=== PATIENT | female | born 1980 | race Caucasian/White ===

== ENCOUNTER 2023-05-15 03:02 | Inpatient (IN) | payer SELFPAY ==
[2023-05-15] VITALS (161 sets, daily range): BP systolic 104–172; BP diastolic 57–124; PULSE 82–141; RESP 0–37; TEMP 35.8–36.8; O2SAT 86–100
--- NOTE | 2023-05-15 03:00 | RT.EKG_ITS ---
APPROVED REPORT Exam: Resting ECG Reason for Exam: short of breath Patient Location: E HR:122 bpm ECG Measurements Heart Rate 122 AXIS NM 127 P 53 QRSd 105 QRS 57 QT 355 T -44 QTc 506 Conclusion Sinus tachycardia...rate> 99 Probable left atrial enlargement...P >50mS, <-0.10mV V1 Physician: no stemi
--- NOTE | 2023-05-15 03:49 | W.ED.GENAD ---
Discharge Plan Disposition Patient Disposition: Admit to [facility] Condition: Good Discharge Details Chief Complaint: SOB Clinical Impression: Diabetic ketoacidosis Primary Care Provider: Mary Kate Trejo ED Provider: Dale Nunez Home Meds and New Rx's Prescriptions: No Action losartan 25 MG tablet 25 mg PO DAILY gabapentin 100 MG capsule 300 mg PO DAILY insulin aspart U-100 [Novolog FlexPen U-100 Insulin] 300 UNITS/3 ML insulin pen 1 applic Sub-Q 0800,1200,1700 Qty: 7 Rx Instructions: FSBS 140-180 6 units, 181-220 8 units, 221- 260 10 units, 261 -300 12 units, 301-340 14 units, 341-380 16 units insulin glargine [Lantus Solostar U-100 Insulin] 300 UNITS/3 ML insulin pen 60 units Sub-Q HS Qty: 7 atorvastatin 40 MG tablet 40 mg PO DAILY levonorgestrel [Mirena] 1 EACH intrauterine device 1 ea .Route DIRECTED Patient Comments: is in place Medical Decision Making 42-year-old female with a past medical history of type II diabetes mellitus on insulin, high cholesterol, hypertension, presents today for evaluation of vomiting. Patient states that for the last 2 to 3 days she has had nausea and vomiting. She has been unable to keep anything down. She has been very thirsty. She is only been urinating a small amount every night. She admits to mild abdominal achiness but no focal tenderness. No focal pain. She denies any chest pain or shortness of breath. She states that symptoms feel similar to previous DKA episodes. Exam demonstrates notably dry mucous membranes, tachypneic, notably low end-tidal CO2, concern for DKA. We will rehydrate, evaluate for electrolyte abnormalities, monitor closely and reassess. 4:52 AM Laboratory work-up demonstrates white count of 20, no fever. pH of 6.9, which is obviously concerning. Bicarb of 4, PCO2 of 21, potassium of 3.3, creatinine of 1.1. Glucose of 481. Patient had already received 1 L of lactated Ringer's. 1 L of normal saline was then added, and patient just finished this now. We will start third liter of fluids which will be normal saline. Insulin drip has been started at 0.1 unit/kg/h. For the DKA. Additional supplemental IV potassium will be given. 20 mill equivalents will be administered now slowly over the IV. We will continue to rehydrate. I did contact Dr. Alaniz, and discussed the case with him. He agrees with the assessment and plan. I have extensively reviewed the treatment plan with the patient. I have addressed all patient concerns at this time. I have also discussed the plan with the admitting physician and they agree with the current assessment and plan and have agreed to assume responsibility for the patient. All parties demonstrate verbal understanding and agreement with our assessment and plan at this time. The documentation in this chart was dictated using [employer] dictation software. Please excuse any dictation errors. Patient has still not urinated at this time. Additionally lipase is normal. Bilirubin was normal. Repeat exam continues to show no evidence of an acute surgical abdomen or focal abdominal tenderness. Patient does look notably improved, respirations of somewhat diminished. Patient states that she is feeling better. HPI General Date/Time Provider Initiated Documentation: 05/15/23 03:06. HPI Narrative: 42-year-old female with a past medical history of type II diabetes mellitus on insulin, high cholesterol, hypertension, presents today for evaluation of vomiting. Patient states that for the last 2 to 3 days she has had nausea and vomiting. She has been unable to keep anything down. She has been very thirsty. She is only been urinating a small amount every night. She admits to mild abdominal achiness but no focal tenderness. No focal pain. She denies any chest pain or shortness of breath. She states that symptoms feel similar to previous DKA episodes. Related Data Home Medications Medication Instructions Recorded Confirmed levonorgestrel 21 mcg/24 hours (8 1 ea .Route DIRECTED 06/13/14 03/11/15 yrs) 52 mg intrauterine device (Mirena) gabapentin 100 mg capsule 300 mg PO DAILY 10/26/15 losartan 25 mg tablet 25 mg PO DAILY 10/26/15 insulin aspart U-100 100 unit/mL 1 applic subcut 0800,1200,1700 ##7 05/14/16 (3 mL) subcutaneous pen (Novolog FlexPen U-100 Insulin aspart) insulin glargine 100 unit/mL (3 60 units subcut HS ##7 05/14/16 mL) subcutaneous pen (Lantus Solostar U-100 Insulin) atorvastatin 40 mg tablet 40 mg PO DAILY 07/27/16 Allergies Allergy/AdvReac Type Severity Reaction Status Date / Time Penicillins Allergy Hives Verified 08/10/16 00:55 codeine AdvReac Nausea Verified 08/10/16 00:55 General Stated Complaint: SOB CAPRICE: 2 Review of Systems All systems reviewed & are unremarkable except as noted in HPI and below PFSH All Active Problems (Updated 05/15/23 @ 05:03 by Dale Nunez DO) Diabetic ketoacidosis (Acute 06/13/14) Insulin drip followed by basal boulus insulin dosing. E. coli UTI (Acute 06/13/14) Received 4 days of IV Deftriaxone. Not discharged on the with any antibiotics. FU urine nonspecific mixed gram positive growth. Hypokalemia (Acute 06/13/14) Type 2 diabetes mellitus (Chronic) Initially on insulin therapy and then oral Metformin, now back on insulin thereapy. Hyperlipidemia (Chronic) Started on Pravastatin this admission (06-13-2014) Morbid obesity with body mass index of 40.0-49.9 (Chronic) Family History Mother Diabetes Uterine cancer Father Diabetes Heart disease Sister Thyroid disorder Grandmother Colon cancer maternal Social History Smoking/Tobacco Use Status: Never Smoking risk assessment performed?: Yes Alcohol Intake: never Drug use: Never Do you feel safe at home: Yes Do you feel safe in your relationship?: Yes Exam Narrative Exam Narrative: 1.Const: Well-nourished, Well-developed, appearing stated age 2.Eyes: PERRL, no conjunctival injection, and symmetrical lids. 3.ENT: Atraumatic external nose and ears. Notably dry MM. Neck: Symmetric, trachea midline, No thyromegaly. 4.CVS: +S1/S2, No murmurs or gallops. Peripheral pulses 2+ and equal in all extremities. Brisk capillary refill in all extremities. 5.RESP: Unlabored respiratory effort. Clear to auscultation bilaterally. No wheezes rales or rhonchi 6.GI: Soft, Nontender/Nondistended, No hepatosplenomegaly. No guarding or rebound. Mild achiness throughout. 7.MSK: Normocephalic/Atraumatic, Extremities w/o deformity or ttp No cyanosis or clubbing, Normal movement of all extremities 8.Skin: Warm, Dry. No rashes or lesions. 9.Neuro: molder setter II-XII grossly intact. Sensation grossly intact, no focal neurologic deficits. 10.Psych: (AAO) x3. Appropriate mood and affect Course Vital Signs Vital signs: Vital Signs Respiratory Rate 30 H 05/15/23 03:31 Respiratory Rate 30 H 05/15/23 03:31 Respiratory Effort Short of Breath 05/15/23 03:31 Respiratory Depth Normal 05/15/23 03:31 Respiratory Pattern Normal 05/15/23 03:31 Critical Care Time Critical Care Time Critical Care Time: Yes Total Critical Care Time: 45 Attestation: Upon my evaluation, this patient had a high probability of imminent or life-threatening deterioration, which required my direct attention, intervention, and personal management. I have personally provided 45 minutes of critical care time exclusive of time spent on separately billable procedures. Time includes review of laboratory data, radiology results, discussion with consultants, and monitoring for potential decompensation. Interventions were performed as documented.
[2023-05-15 03:56] LABS: BE (Venous) -29 mmol/L (-2-3); HCO3 (Venous) 4 mmol/L (23-28); O2 Sat (Venous) 87 %; TCO2 (Venous) 4 mmol/L (24-29); pCO2 (Venous) 21 mmHg (41-51); pO2 (Venous) 64 mmHg
[2023-05-15 04:00] LABS: Absolute Basophil Count 0.15 10^3/uL (0.0-0.2); Absolute Monocyte Count 0.64 10^3/uL (0.1-0.8); Basophils % 0.8; Eosinophils % 0.1; HCT 54.4 % (36.0-46.0); HGB 17.9 g/dL (11.2-15.7); Immature Grans % 2.6; MCH 28.5 pg (27.0-33.0); MCHC 32.9 % (32.0-36.0); MCV 87 fL (80-95); MPV 9.4 fL (8.0-11.0); Monocytes % 3.3; Neutrophils % 80.2; Platelet Count 458 10^3/uL (130-400); RBC 6.28 10^6/uL (3.93-5.22); RDW 13.2 % (11.7-14.6); RDW-SD 41.7 fL; WBC 19.28 10^3/uL (4.4-10.8)
[2023-05-15 04:01] LABS: Absolute Eosinophil Count 0.02 10^3/uL (0.0-0.7); Absolute Lymphocyte Count 2.51 10^3/uL (1.2-3.4); Absolute Neutrophil Count 15.46 10^3/uL (1.2-6.7)
[2023-05-15] MEDS: INSULIN REGULAR IN 0.9 % NACL 100 UNIT/100 ML BAG 9 UNIT IV ×2 (04:16→13:07)
[2023-05-15 04:17] LABS: HCG Qual (Serum) Negative
[2023-05-15] MEDS: Normal Saline 1,000 ML 1000 ML IV ×3 (04:18→04:50)
[2023-05-15 04:26] LABS: ALT 18 U/L (14-59); AST 8 U/L (15-37); Albumin 4.4 g/dL (3.4-5.0); Alkaline Phosphatase 110 U/L (46-116); Anion Gap 30.9 mmol/L (3-11); BUN 18 mg/dL (7-18); Bilirubin, Total 0.5 mg/dL (0.2-1.0); CO2 5.1 mmol/L (21.0-32.0); CREATININE 1.1 mg/dL (0.55-1.02); Calcium 9.3 mg/dL (8.5-10.1); Chloride 100 mmol/L (98-107); Estimated GFR 63.54 (mL/min/1.73m2); Glucose 481 mg/dL (74-106); Lipase 20 U/L (16-77); Potassium 3.3 mmol/L (3.5-5.1); Sodium 136 mmol/L (136-145); Total Protein 8.2 g/dL (6.4-8.2); Troponin I < 50 ng/L (<or=60)
[2023-05-15] MEDS: POTASSIUM CHLORIDE 20 MEQ/100 ML BAG 50 MEQ IVPB ×6 (04:40→19:31)
[2023-05-15] MEDS: Lactated Ringers 1,000 ML 1000 ML IV (05:22)
--- NOTE | 2023-05-15 05:36 | HPE_ITS ---
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 She does have an elevated WBC but this may be due to the stress of her acute process. Her pH was below 7 and she is Kussmaul breathing but awake and moderately comfortable with IV hydration initiated an IV infusion of insulin following DKA protocol for treatment. Cultures the urine and blood should have been done in the ED. She is a full code. (2) Hypokalemia: Status: Acute Assessment and plan: Patient has relative hypokalemia which is severe with her acidosis and potassium supplementation and the IV fluid resuscitation and with boluses will be repleted as needed. Monitor lab closely. (3) Type 2 diabetes mellitus: Status: Chronic Assessment and plan: Patient began to have diabetes after her second son and is on insulin treatment. She is overweight. She would do well with a GLP-1 agonist therapy. (4) Hyperlipidemia: Status: Chronic Assessment and plan: Continue statin therapy. (5) Morbid obesity with body mass index of 40.0-49.9: Status: Chronic Assessment and plan: Weight loss would be helpful and GLP 1 agonist therapy may be beneficial for this purpose. (6) HTN (hypertension): Status: Chronic Assessment and plan: Monitor with outpatient medical therapy been adjusted as needed. History of Present Illness History of Present Illness Chief Complaint: Nausea and vomiting for 2 to 3 days with weakness and decreased urine out Narrative: This is a 42-year-old female patient has had nausea and vomiting for the last 3 to 4 days with diabetes mellitus treated with insulin having diabetes since her second child was born. She is been working 2 jobs with fatigue began to have illness over this last weekend. She was very thirsty and she had decreased her urinary output with body aches and abdominal discomfort similar to when she had previous DKA. She reported to the ED for evaluation was found to be in DKA and initiated on IV fluid resuscitation with IV insulin infusion and lab evaluation. 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 With IV hydration and insulin she was feeling better. She did have acidosis with elevated anion gap which we followed closely as she is treated with IV insulin infusion and adjustment of IV fluids in the ICU. Her other medical problems appear to be overall stable. She was a full consciousness without coma. She has had. Previous episodes of DKA requiring hospitalization. She is a full code. Review of Systems Narrative: 13 point review systems otherwise unrevealing or stable. Patient has not lost significant weight. PFSH All Active Problems (Updated 05/15/23 @ 06:10 by Gael Jacobo) HTN (hypertension) (Chronic) DKA (diabetic ketoacidosis) (Acute) Diabetic ketoacidosis (Acute 06/13/14) Insulin drip followed by basal boulus insulin dosing. E. coli UTI (Acute 06/13/14) Received 4 days of IV Deftriaxone. Not discharged on the with any antibiotics. FU urine nonspecific mixed gram positive growth. Hypokalemia (Acute 06/13/14) Type 2 diabetes mellitus (Chronic) Initially on insulin therapy and then oral Metformin, now back on insulin thereapy. Hyperlipidemia (Chronic) Started on Pravastatin this admission (06-13-2014) Morbid obesity with body mass index of 40.0-49.9 (Chronic) Family History Mother Diabetes Uterine cancer Father Diabetes Heart disease Sister Thyroid disorder Grandmother Colon cancer maternal Social History Smoking/Tobacco Use Status: Never Smoking risk assessment performed?: Yes Alcohol Intake: never Drug use: Never Do you feel safe at home: Yes Do you feel safe in your relationship?: Yes Meds Allergies and Home Medications Allergies Allergy/AdvReac Type Severity Reaction Status Date / Time Penicillins Allergy Hives Verified 08/10/16 00:55 codeine AdvReac Nausea Verified 08/10/16 00:55 Home Medications Medication Instructions Recorded Confirmed Type levonorgestrel 21 mcg/24 hours (8 1 ea .Route DIRECTED 06/13/14 03/11/15 History yrs) 52 mg intrauterine device (Mirena) gabapentin 100 mg capsule 300 mg PO DAILY 10/26/15 History losartan 25 mg tablet 25 mg PO DAILY 10/26/15 History insulin aspart U-100 100 unit/mL 1 applic subcut 00,1200,1700 ##7 05/14/16 History (3 mL) subcutaneous pen (Novolog FlexPen U-100 Insulin aspart) insulin glargine 100 unit/mL (3 60 units subcut HS ##7 05/14/16 History mL) subcutaneous pen (Lantus Solostar U-100 Insulin) atorvastatin 40 mg tablet 40 mg PO DAILY 07/27/16 History Exam Narrative Exam Narrative: General: Patient appears appropriate for age, moderately obese, lying in bed tachypneic with Kussmaul breathing. She is alert and oriented x3. She is in moderate distress with her respiratory status. HEENT: Normocephalic, eyes with pupils equal and react to light symmetrically, extraocular movement tact and sclera anicteric. Oral mucosa dry with poor dentition. Neck: Supple without JVD. Lungs: Clear to auscultation percussion with no focalizing rales or rhonchi. No expiratory wheeze. She is tachypneic. Breast: Exam deferred Heart: Regular rhythm with tachycardia and no appreciable murmur or gallop. Abdomen: Obese contour, soft and nontender to palpation with no palpable hepatosplenomegaly. Bowel sounds positive all quadrants. Genitalia/rectal: Exam deferred. Extremities: Without clubbing, cyanosis or grossly pitting edema. Multiple tattoos. Good capillary refill. Skin: Pale, moist and warm with multiple tattoos as mentioned. No open lesions noted. Neuro: Cranial nerves II through XII gross intact, no focalizing motor deficits. No tremor. Psych: Flattened affect with depressed mood. Patient is not encephalopathic. No abnormal thought processes. Remote and recent memory grossly intact. Results Labs 05/15/23 03:45 05/15/23 03:45 Labs: Laboratory Results - last 24 hr 05/15/23 05/15/23 05/15/23 03:45 03:45 03:45 WBC 19.28 H RBC 6.28 H Hgb 17.9 H Hct 54.4 H MCV 87 MCH 28.5 MCHC 32.9 RDW 13.2 Plt Count 458 H MPV 9.4 Immature Gran % 2.6 Neutrophils % 80.2 Lymphocytes % 13.0 Monocytes % 3.3 Eosinophils % 0.1 Basophils % 0.8 Nucleated RBC % 0.0 Absolute Neutrophils 15.46 H Absolute Lymphocytes 2.51 Absolute Monocytes 0.64 Absolute Eosinophils 0.02 Absolute Basophils 0.15 VBG pH 6.90 L* VBG pCO2 21 L VBG pO2 64 VBG HCO3 4 L VBG Total CO2 4 L VBG O2 Saturation 87 VBG Base Excess -29 L Sodium 136 Potassium 3.3 L Chloride 100 Carbon Dioxide 5.1 L Anion Gap 30.9 H BUN 18 Creatinine 1.1 H Est GFR (CKD-EPI 2020) 63.54 Glucose 481 H Calcium 9.3 Total Bilirubin 0.5 AST 8 L ALT 18 Alkaline Phosphatase 110 Troponin I < 50 Total Protein 8.2 Albumin 4.4 Lipase 20 Serum HCG, Qual 05/15/23 03:45 WBC RBC Hgb Hct MCV MCH MCHC RDW Plt Count MPV Immature Gran % Neutrophils % Lymphocytes % Monocytes % Eosinophils % Basophils % Nucleated RBC % Absolute Neutrophils Absolute Lymphocytes Absolute Monocytes Absolute Eosinophils Absolute Basophils VBG pH VBG pCO2 VBG pO2 VBG HCO3 VBG Total CO2 VBG O2 Saturation VBG Base Excess Sodium Potassium Chloride Carbon Dioxide Anion Gap BUN Creatinine Est GFR (CKD-EPI 2020) Glucose Calcium Total Bilirubin AST ALT Alkaline Phosphatase Troponin I Total Protein Albumin Lipase Serum HCG, Qual Negative Last Vital Signs Resp 30 H 05/15/23 03:31 Time Spent Time spent with Patient: >75 minutes Time was spent: preparing to see the patient(eg.review tests), obtaining and/or reviewing separately otained hiistory, ordering medications,tests, procedures, referring, communicating with other health clinical care coordinator, indepentently interpreting results, counseling the patient and care coordination
[2023-05-15 06:21] LABS: Bilirubin Small (Negative); Blood Moderate (Negative); Clarity Sl Cloudy (Clear); Glucose 500 mg/dL (Negative); Ketones >=160 mg/dL (Negative); Leukocyte Esterase Negative (Negative); Nitrite Negative (Negative); Specific Gravity >= 1.030 (1.005-1.025); Urobilinogen 0.2 mg/dL (Up to 0.2)
[2023-05-15 06:27] LABS: Bacteria Rare HPF (Negative); C & S Indicated? No; Casts Negative LPF (Negative); Crystals Negative HPF (Negative); Epithelial Cells Rare HPF (Negative); Mucus Trace (Negative); WBC 0-2 HPF (0-5)
[2023-05-15 07:27] LABS: BUN 20 mg/dL (7-18); CREATININE 0.9 mg/dL (0.55-1.02); Calcium 8.1 mg/dL (8.5-10.1); Chloride 106 mmol/L (98-107); Estimated GFR 80.84 (mL/min/1.73m2); Glucose 465 mg/dL (74-106); Potassium 4.7 mmol/L (3.5-5.1); Sodium 135 mmol/L (136-145)
[2023-05-15 07:58] LABS: Anion Gap 24.00001 mmol/L (3-11)
[2023-05-15 08:00] LABS: CO2 < 5.0 mmol/L (21.0-32.0)
[2023-05-15] MEDS: POTASSIUM CHLORIDE/0.9% NACL 1,000 ML 250 MEQ IV (08:40)
--- NOTE | 2023-05-15 08:40 | PDOC.CMIN ---
Date of service: 05/15/23 Time of Service: 08:41 Care Management Initial Assmt Initial Assessment REASON FOR HOSPITALIZATION:: DKA PREVIOUS FUNCTIONAL STATUS/SOCIAL/FAMILY SUPPORTS:: Deborah lives in [place] in a single family home with her parents. She has 2 adult children; her son lives locally and her daughter lives in [place]. Deborah moved to [place] from [place] about a year ago. She is currently working at [employer]. Deborah does not have any insurance and has been unable to afford her medications, particularly her insulin which has resulted in the development of DKA. CM sent a referral to [employer] for assistance with insurance and medications Deborah is independent at baseline and does not receive any community services. CURRENT FUNCTIONAL STATUS:: Deborah was lying in bed when CM met with her. She is acutely ill in the ICU and was only able to answer a few questions. She indicated that she is concerned about her medications and lack of insurance. She stated that she has tried to get Medicaid before but was told she needed to wait until open enrollment. When Deborah is feeling better, CM will assist with the completion of a Patient Financial Assistance packet. ADVANCE DIRECTIVES:: none on file Has patient been provided with info about the portal/API?: Yes Did the patient sign up for the portal?: No CODE STATUS:: Full Code INSURANCE COVERAGE / FINANCIAL ISSUES:: self pay CURRENT HOME/COMMUNITY SERVICES/EQUIPMENT:: none PRIMARY CARE PHYSICIAN:: none local POTENTIAL DISCHARGE NEEDS:: follow up with PCP Insurance Diabetic teaching and supplies PATIENT/FAMILY EDUCATION NEEDS:: Review of discharge instructions, medications, diet, glucose control, limitations, follow up plan, discuss Ask me Three TRANSPORTATION:: via private vehicle with family PLAN:: Anticipate Deborah will be discharged home with no new services. She will follow up with the provider mainframe applications developer today, her day of admission, and establish with that practice if she chooses. CM sent a referral to [employer] for financial assistance and insurance. CM will follow and assess for ongoing discharge concerns. PFSH All Active Problems (Updated 05/15/23 @ 06:10 by Gael Jacobo) HTN (hypertension) (Chronic) DKA (diabetic ketoacidosis) (Acute) Diabetic ketoacidosis (Acute 06/13/14) Insulin drip followed by basal boulus insulin dosing. E. coli UTI (Acute 06/13/14) Received 4 days of IV Deftriaxone. Not discharged on the with any antibiotics. FU urine nonspecific mixed gram positive growth. Hypokalemia (Acute 06/13/14) Type 2 diabetes mellitus (Chronic) Initially on insulin therapy and then oral Metformin, now back on insulin thereapy. Hyperlipidemia (Chronic) Started on Pravastatin this admission (06-13-2014) Morbid obesity with body mass index of 40.0-49.9 (Chronic) Family History Mother Diabetes Uterine cancer Father Diabetes Heart disease Sister Thyroid disorder Grandmother Colon cancer maternal Social History Smoking/Tobacco Use Status: Never Smoking risk assessment performed?: Yes Alcohol Intake: never Drug use: Never Housing: house Do you feel safe at home: Yes Do you feel safe in your relationship?: Yes
[2023-05-15 09:06] LABS: BE (Venous) -29 mmol/L (-2-3); HCO3 (Venous) 3 mmol/L (23-28); O2 Sat (Venous) 86 %; TCO2 (Venous) 3 mmol/L (24-29); pO2 (Venous) 53 mmHg
[2023-05-15 09:08] LABS: Lab Add On Test DONE
[2023-05-15 09:12] LABS: pH (Venous) 6.92 (7.31-7.41)
[2023-05-15 09:14] LABS: Lactate 1.9 mmol/L (0.6-1.4)
[2023-05-15 09:14] LABS: pCO2 (Venous) 16 mmHg (41-51)
[2023-05-15 09:28] LABS: BUN 19 mg/dL (7-18); CREATININE 0.9 mg/dL (0.55-1.02); Calcium 8.3 mg/dL (8.5-10.1); Chloride 108 mmol/L (98-107); Estimated GFR 80.84 (mL/min/1.73m2); Glucose 382 mg/dL (74-106); Potassium 3.8 mmol/L (3.5-5.1); Sodium 138 mmol/L (136-145)
[2023-05-15 09:29] LABS: PHOSPHORUS 2.1 mg/dL (2.6-4.7)
[2023-05-15 09:32] LABS: Anion Gap 25.00001 mmol/L (3-11); CO2 < 5.0 mmol/L (21.0-32.0)
--- NOTE | 2023-05-15 09:39 | W.PM.PROGNOT ---
Date of Service Date of service: 05/15/23 Time of Service: 09:39 Assessment and Plan Assessment and plan (1) DKA (diabetic ketoacidosis): Status: Acute Assessment and plan: Aggressive IV fluid hydration. I have increased her IV fluid content to normal saline with 20 of KCl per liter at a rate of 250 MLS per hour. We will give her additional potassium riders. Monitor her BMP every 2 hours, along with VBG's. Continue insulin drip per ER protocol. Monitor blood sugars every hour. Check phosphorus levels and replace as needed. Check magnesium levels and replace as needed. Case management should work with patient once she is out of DKA to try to find her local primary care provider as well as assist her with getting her insulin. I explained to the patient that it is federal law that diabetics have to be given insulin on demand if they go to a pharmacy. She should be able to buy generic Humalog and Humulin N at an affordable rate. No diabetic should go without insulin. I have ordered a bolus of sodium bicarbonate 50 mill equivalents to be given IV push now in light of her severe acidosis with a pH of 6.92. Once we get her pH above 7.1 I think we can correct this by correcting her DKA with insulin and fluids. Critical care time spent interviewing and examining the patient, reviewing studies, discussing case with patient's nurse and consulting physicians was 30 minutes (2) HTN (hypertension): Status: Chronic Assessment and plan: losartan was reordered. monitor and adjust accordingly Subjective Subjective Interval history since last seen: 42-year-old female with DM (MEME) diagnosed when her son who is 19 yr old was born. She states that she had been a resident of [place] and moved to [place] about one year ago. She has not established w/ a PCP yet in [place] and states she has been out of her insulin x 6 months. She has had recurrent DKA 3 x since then. She presented w/ severe DKA. Despite IV fluids and IV insulin she still remains severely acidotic pH 6.92, serum bicarbonate less than 5 anion gap 25. Potassium had been 3.3 on her initial labs and then after potassium replacement came up to 4.7 but is now back down to 3.8. Patient has poor peripheral IV access. Patient is consented to a central line. Initially I was going to place her central line but per my examination of the ultrasound she did not have a good clear path to her right IJ as her carotid artery was in the way. She did appear to have a acceptable pathway to her left IJ however I contacted Dr. Flo Douglass who is present to the intensive care unit we will place a subclavian line. Patient did have 2 peripheral IVs but lost when the IVs became infiltrated in her right arm. She now has a tenuous left antecubital IV. Labs had trouble drawing her lab work patient requires multiple IV fluids including potassium supplementation as well as insulin drip as well as isotonic fluids. 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 Examination of feet shows no open sores she does have calluses under the MTP joints as well as her heels but there is no open sores she has normal pedal pulses Objective Last Vital Signs Temp 36.1 C L 05/15/23 09:09 Pulse 113 H 05/15/23 08:01 Resp 30 H 05/15/23 09:09 BP 151/62 H 05/15/23 08:01 Pulse Ox 100 05/15/23 09:09 Laboratory Results - last 24 hr 05/15/23 05/15/23 05/15/23 03:45 03:45 03:45 WBC 19.28 H RBC 6.28 H Hgb 17.9 H Hct 54.4 H MCV 87 MCH 28.5 MCHC 32.9 RDW 13.2 Plt Count 458 H MPV 9.4 Immature Gran % 2.6 Neutrophils % 80.2 Lymphocytes % 13.0 Monocytes % 3.3 Eosinophils % 0.1 Basophils % 0.8 Nucleated RBC % 0.0 Absolute Neutrophils 15.46 H Absolute Lymphocytes 2.51 Absolute Monocytes 0.64 Absolute Eosinophils 0.02 Absolute Basophils 0.15 VBG pH 6.90 L* VBG pCO2 21 L VBG pO2 64 VBG HCO3 4 L VBG Total CO2 4 L VBG O2 Saturation 87 VBG Base Excess -29 L VBG Lactate Sodium 136 Potassium 3.3 L Chloride 100 Carbon Dioxide 5.1 L Anion Gap 30.9 H BUN 18 Creatinine 1.1 H Est GFR (CKD-EPI 2020) 63.54 Glucose 481 H Calcium 9.3 Phosphorus Total Bilirubin 0.5 AST 8 L ALT 18 Alkaline Phosphatase 110 Troponin I < 50 Total Protein 8.2 Albumin 4.4 Lipase 20 Serum HCG, Qual Urine Color Urine Clarity Urine pH Ur Specific [place] Urine Protein Urine Ketones Urine Blood Urine Nitrite Urine Bilirubin Urine Urobilinogen Ur Leukocyte Esterase Urine RBC Urine WBC Ur Epithelial Cells Urine Crystals Urine Bacteria Urine Casts Urine Mucus Ur Culture Indicated? Urine Glucose Add-On Test Request 05/15/23 05/15/23 05/15/23 03:45 06:00 06:10 WBC RBC Hgb Hct MCV MCH MCHC RDW Plt Count MPV Immature Gran % Neutrophils % Lymphocytes % Monocytes % Eosinophils % Basophils % Nucleated RBC % Absolute Neutrophils Absolute Lymphocytes Absolute Monocytes Absolute Eosinophils Absolute Basophils VBG pH VBG pCO2 VBG pO2 VBG HCO3 VBG Total CO2 VBG O2 Saturation VBG Base Excess VBG Lactate Sodium Cancelled Potassium Cancelled Chloride Cancelled Carbon Dioxide Cancelled Anion Gap Cancelled BUN Cancelled Creatinine Cancelled Est GFR (CKD-EPI 2020) Cancelled Glucose Cancelled Calcium Cancelled Phosphorus Total Bilirubin AST ALT Alkaline Phosphatase Troponin I Total Protein Albumin Lipase Serum HCG, Qual Negative Urine Color Yellow Urine Clarity Sl Cloudy Urine pH 5.0 Ur Specific [place] >= 1.030 H Urine Protein 100 H Urine Ketones >=160 H Urine Blood Moderate H Urine Nitrite Negative Urine Bilirubin Small H Urine Urobilinogen 0.2 Ur Leukocyte Esterase Negative Urine RBC 10-20 H Urine WBC 0-2 Ur Epithelial Cells Rare Urine Crystals Negative Urine Bacteria Rare Urine Casts Negative Urine Mucus Trace Ur Culture Indicated? No Urine Glucose 500 H Add-On Test Request 05/15/23 05/15/23 05/15/23 06:36 08:00 08:33 WBC RBC Hgb Hct MCV MCH MCHC RDW Plt Count MPV Immature Gran % Neutrophils % Lymphocytes % Monocytes % Eosinophils % Basophils % Nucleated RBC % Absolute Neutrophils Absolute Lymphocytes Absolute Monocytes Absolute Eosinophils Absolute Basophils VBG pH VBG pCO2 VBG pO2 VBG HCO3 VBG Total CO2 VBG O2 Saturation VBG Base Excess VBG Lactate 1.9 H Sodium 135 L Cancelled Potassium 4.7 D Cancelled Chloride 106 Cancelled Carbon Dioxide < 5.0 L* Cancelled Anion Gap 24.77147 H Cancelled BUN 20 H Cancelled Creatinine 0.9 Cancelled Est GFR (CKD-EPI 2020) 80.84 Cancelled Glucose 465 H Cancelled Calcium 8.1 L Cancelled Phosphorus Total Bilirubin AST ALT Alkaline Phosphatase Troponin I Total Protein Albumin Lipase Serum HCG, Qual Urine Color Urine Clarity Urine pH Ur Specific [place] Urine Protein Urine Ketones Urine Blood Urine Nitrite Urine Bilirubin Urine Urobilinogen Ur Leukocyte Esterase Urine RBC Urine WBC Ur Epithelial Cells Urine Crystals Urine Bacteria Urine Casts Urine Mucus Ur Culture Indicated? Urine Glucose Add-On Test Request 05/15/23 05/15/23 05/15/23 08:35 08:35 08:35 WBC RBC Hgb Hct MCV MCH MCHC RDW Plt Count MPV Immature Gran % Neutrophils % Lymphocytes % Monocytes % Eosinophils % Basophils % Nucleated RBC % Absolute Neutrophils Absolute Lymphocytes Absolute Monocytes Absolute Eosinophils Absolute Basophils VBG pH 6.92 L* VBG pCO2 16 L* VBG pO2 53 VBG HCO3 3 L VBG Total CO2 3 L VBG O2 Saturation 86 VBG Base Excess -29 L VBG Lactate Sodium 138 Potassium 3.8 Chloride 108 H Carbon Dioxide < 5.0 L* Anion Gap 25.66240 H BUN 19 H Creatinine 0.9 Est GFR (CKD-EPI 2020) 80.84 Glucose 382 H Calcium 8.3 L Phosphorus Total Bilirubin AST ALT Alkaline Phosphatase Troponin I Total Protein Albumin Lipase Serum HCG, Qual Urine Color Urine Clarity Urine pH Ur Specific [place] Urine Protein Urine Ketones Urine Blood Urine Nitrite Urine Bilirubin Urine Urobilinogen Ur Leukocyte Esterase Urine RBC Urine WBC Ur Epithelial Cells Urine Crystals Urine Bacteria Urine Casts Urine Mucus Ur Culture Indicated? Urine Glucose Add-On Test Request DONE 05/15/23 05/15/23 05/15/23 08:35 10:00 12:00 WBC RBC Hgb Hct MCV MCH MCHC RDW Plt Count MPV Immature Gran % Neutrophils % Lymphocytes % Monocytes % Eosinophils % Basophils % Nucleated RBC % Absolute Neutrophils Absolute Lymphocytes Absolute Monocytes Absolute Eosinophils Absolute Basophils VBG pH VBG pCO2 VBG pO2 VBG HCO3 VBG Total CO2 VBG O2 Saturation VBG Base Excess VBG Lactate Sodium Cancelled Cancelled Potassium Cancelled Cancelled Chloride Cancelled Cancelled Carbon Dioxide Cancelled Cancelled Anion Gap Cancelled Cancelled BUN Cancelled Cancelled Creatinine Cancelled Cancelled Est GFR (CKD-EPI 2020) Cancelled Cancelled Glucose Cancelled Cancelled Calcium Cancelled Cancelled Phosphorus 2.1 L Total Bilirubin AST ALT Alkaline Phosphatase Troponin I Total Protein Albumin Lipase Serum HCG, Qual Urine Color Urine Clarity Urine pH Ur Specific [place] Urine Protein Urine Ketones Urine Blood Urine Nitrite Urine Bilirubin Urine Urobilinogen Ur Leukocyte Esterase Urine RBC Urine WBC Ur Epithelial Cells Urine Crystals Urine Bacteria Urine Casts Urine Mucus Ur Culture Indicated? Urine Glucose Add-On Test Request 05/15/23 05/15/23 05/15/23 14:00 16:00 18:00 WBC RBC Hgb Hct MCV MCH MCHC RDW Plt Count MPV Immature Gran % Neutrophils % Lymphocytes % Monocytes % Eosinophils % Basophils % Nucleated RBC % Absolute Neutrophils Absolute Lymphocytes Absolute Monocytes Absolute Eosinophils Absolute Basophils VBG pH VBG pCO2 VBG pO2 VBG HCO3 VBG Total CO2 VBG O2 Saturation VBG Base Excess VBG Lactate Sodium Cancelled Cancelled Cancelled Potassium Cancelled Cancelled Cancelled Chloride Cancelled Cancelled Cancelled Carbon Dioxide Cancelled Cancelled Cancelled Anion Gap Cancelled Cancelled Cancelled BUN Cancelled Cancelled Cancelled Creatinine Cancelled Cancelled Cancelled Est GFR (CKD-EPI 2020) Cancelled Cancelled Cancelled Glucose Cancelled Cancelled Cancelled Calcium Cancelled Cancelled Cancelled Phosphorus Total Bilirubin AST ALT Alkaline Phosphatase Troponin I Total Protein Albumin Lipase Serum HCG, Qual Urine Color Urine Clarity Urine pH Ur Specific [place] Urine Protein Urine Ketones Urine Blood Urine Nitrite Urine Bilirubin Urine Urobilinogen Ur Leukocyte Esterase Urine RBC Urine WBC Ur Epithelial Cells Urine Crystals Urine Bacteria Urine Casts Urine Mucus Ur Culture Indicated? Urine Glucose Add-On Test Request 05/15/23 20:00 WBC RBC Hgb Hct MCV MCH MCHC RDW Plt Count MPV Immature Gran % Neutrophils % Lymphocytes % Monocytes % Eosinophils % Basophils % Nucleated RBC % Absolute Neutrophils Absolute Lymphocytes Absolute Monocytes Absolute Eosinophils Absolute Basophils VBG pH VBG pCO2 VBG pO2 VBG HCO3 VBG Total CO2 VBG O2 Saturation VBG Base Excess VBG Lactate Sodium Cancelled Potassium Cancelled Chloride Cancelled Carbon Dioxide Cancelled Anion Gap Cancelled BUN Cancelled Creatinine Cancelled Est GFR (CKD-EPI 2020) Cancelled Glucose Cancelled Calcium Cancelled Phosphorus Total Bilirubin AST ALT Alkaline Phosphatase Troponin I Total Protein Albumin Lipase Serum HCG, Qual Urine Color Urine Clarity Urine pH Ur Specific [place] Urine Protein Urine Ketones Urine Blood Urine Nitrite Urine Bilirubin Urine Urobilinogen Ur Leukocyte Esterase Urine RBC Urine WBC Ur Epithelial Cells Urine Crystals Urine Bacteria Urine Casts Urine Mucus Ur Culture Indicated? Urine Glucose Add-On Test Request Time Spent with Patient Time Spent with Patient: 25-34 minutes Time was spent: preparing to see the patient(eg.review tests), obtaining and/or reviewing separately otained hiistory, ordering medications,tests, procedures, referring, communicating with other health care clinician, indepentently interpreting results, counseling the patient and care coordination
[2023-05-15] MEDS: Sodium Bicarbonate 50 MEQ/50 ML SYR IVP (10:00)
[2023-05-15 10:06] LABS: Procalcitonin < 0.1 ng/mL
[2023-05-15] MEDS: Atorvastatin 40 MG TAB PO (11:15)
[2023-05-15] MEDS: Losartan 25 MG TAB PO (11:15)
[2023-05-15] MEDS: Normal Saline Flush 10 ML SYR IVP ×4 (11:15→22:04)
[2023-05-15 11:44] LABS: Anion Gap 22.3 mmol/L (3-11); BUN 17 mg/dL (7-18); CO2 6.7 mmol/L (21.0-32.0); CREATININE 0.8 mg/dL (0.55-1.02); Chloride 112 mmol/L (98-107); Estimated GFR 93.12 (mL/min/1.73m2); Glucose 262 mg/dL (74-106); Potassium 3.3 mmol/L (3.5-5.1); Sodium 141 mmol/L (136-145)
[2023-05-15] MEDS: Gabapentin 100 MG CAP 300 MG PO (11:53)
[2023-05-15] MEDS: POTASSIUM CHLORIDE/0.9% NACL 1,000 ML 500 MEQ IV (11:59)
[2023-05-15 12:16] LABS: BE (Venous) -24 mmol/L (-2-3); HCO3 (Venous) 6 mmol/L (23-28); O2 Sat (Venous) 79 %; TCO2 (Venous) 5 mmol/L (24-29); pO2 (Venous) 38 mmHg
[2023-05-15 12:19] LABS: pCO2 (Venous) 18 mmHg (41-51)
[2023-05-15 12:29] LABS: Anion Gap 21.9 mmol/L (3-11); BUN 17 mg/dL (7-18); CO2 6.1 mmol/L (21.0-32.0); CREATININE 0.7 mg/dL (0.55-1.02); Calcium 7.7 mg/dL (8.5-10.1); Chloride 114 mmol/L (98-107); Glucose 228 mg/dL (74-106); Potassium 3.6 mmol/L (3.5-5.1); Sodium 142 mmol/L (136-145)
[2023-05-15 14:52] LABS: Anion Gap 16.2 mmol/L (3-11); BUN 14 mg/dL (7-18); CO2 10.8 mmol/L (21.0-32.0); CREATININE 0.7 mg/dL (0.55-1.02); Calcium 7.8 mg/dL (8.5-10.1); Chloride 112 mmol/L (98-107); Glucose 228 mg/dL (74-106); Potassium 3.4 mmol/L (3.5-5.1); Sodium 139 mmol/L (136-145)
--- NOTE | 2023-05-15 15:06 | W.SURGCON ---
Date of service: 05/15/23 Time of Service: 10:30 Assessment and Plan Assessment and plan (1) DKA (diabetic ketoacidosis): Status: Resolved Assessment and plan: Ms. Ross is a pleasant 42-year-old female who was admitted with diabetic ketoacidosis to the intensive care unit. I was asked to place a central line. I was unable to get the guidewire into the right subclavian vein without resistance, therefore a right femoral line was placed as this was an emergent procedure. The patient was unable to sign her consent but she gave verbal consent for central line placement. Dr. Wilburn was in the room when she is gave me consent. Risks, benefits and complications were discussed with the patient and she wanted to proceed. History of Present Illness Narrative: Ms. Ross is a 42-year-old female admitted in DKA by the hospitalist to the intensive care unit. I was asked to place a central line for her for IV access. Patient is sweating profusely as I walk in the room. She is somewhat agitated and thirsty. She keeps asking for something to drink. Consults Consult date: 05/15/23 Requesting physician: Francis Linton Review of Systems All systems reviewed & are unremarkable except as noted in HPI and below PFSH All Active Problems HTN (hypertension) (Chronic) E. coli UTI (Acute 06/13/14) Received 4 days of IV Deftriaxone. Not discharged on the 24th with any antibiotics. FU urine nonspecific mixed gram positive growth. Type 2 diabetes mellitus (Chronic) Initially on insulin therapy and then oral Metformin, now back on insulin thereapy. Hyperlipidemia (Chronic) Started on Pravastatin this admission (06-13-2014) Morbid obesity with body mass index of 40.0-49.9 (Chronic) Family History Mother Diabetes Uterine cancer Father Diabetes Heart disease Sister Thyroid disorder Grandmother Colon cancer maternal Social History Smoking/Tobacco Use Status: Never Smoking risk assessment performed?: Yes Alcohol Intake: never Drug use: Never Housing: house Do you feel safe at home: Yes Do you feel safe in your relationship?: Yes Exam Const General: in distress, anxious, diaphoretic and ill appearing Nutritional Appearance: average body habitus Orientation: alert Resp Effort & Inspection: normal respiratory effort Results Last Vital Signs Temp 97.0 F L 05/15/23 09:09 Pulse 111 H 05/15/23 14:01 Resp 27 H 05/15/23 14:40 BP 140/78 05/15/23 14:01 Pulse Ox 100 05/15/23 14:40 Labs 05/17/23 05:30 05/17/23 14:52 Labs: Laboratory Results - last 24 hr 05/15/23 05/15/23 05/15/23 03:45 03:45 03:45 WBC 19.28 H RBC 6.28 H Hgb 17.9 H Hct 54.4 H MCV 87 MCH 28.5 MCHC 32.9 RDW 13.2 Plt Count 458 H MPV 9.4 Immature Gran % 2.6 Neutrophils % 80.2 Lymphocytes % 13.0 Monocytes % 3.3 Eosinophils % 0.1 Basophils % 0.8 Nucleated RBC % 0.0 Absolute Neutrophils 15.46 H Absolute Lymphocytes 2.51 Absolute Monocytes 0.64 Absolute Eosinophils 0.02 Absolute Basophils 0.15 VBG pH 6.90 L* VBG pCO2 21 L VBG pO2 64 VBG HCO3 4 L VBG Total CO2 4 L VBG O2 Saturation 87 VBG Base Excess -29 L VBG Lactate Sodium 136 Potassium 3.3 L Chloride 100 Carbon Dioxide 5.1 L Anion Gap 30.9 H BUN 18 Creatinine 1.1 H Est GFR (CKD-EPI 2020) 63.54 Glucose 481 H Calcium 9.3 Phosphorus Total Bilirubin 0.5 AST 8 L ALT 18 Alkaline Phosphatase 110 Troponin I < 50 Total Protein 8.2 Albumin 4.4 Lipase 20 Procalcitonin Serum HCG, Qual Urine Color Urine Clarity Urine pH Ur Specific [place] Urine Protein Urine Ketones Urine Blood Urine Nitrite Urine Bilirubin Urine Urobilinogen Ur Leukocyte Esterase Urine RBC Urine WBC Ur Epithelial Cells Urine Crystals Urine Bacteria Urine Casts Urine Mucus Ur Culture Indicated? Urine Glucose Add-On Test Request 05/15/23 05/15/23 05/15/23 03:45 06:00 06:10 WBC RBC Hgb Hct MCV MCH MCHC RDW Plt Count MPV Immature Gran % Neutrophils % Lymphocytes % Monocytes % Eosinophils % Basophils % Nucleated RBC % Absolute Neutrophils Absolute Lymphocytes Absolute Monocytes Absolute Eosinophils Absolute Basophils VBG pH VBG pCO2 VBG pO2 VBG HCO3 VBG Total CO2 VBG O2 Saturation VBG Base Excess VBG Lactate Sodium Cancelled Potassium Cancelled Chloride Cancelled Carbon Dioxide Cancelled Anion Gap Cancelled BUN Cancelled Creatinine Cancelled Est GFR (CKD-EPI 2020) Cancelled Glucose Cancelled Calcium Cancelled Phosphorus Total Bilirubin AST ALT Alkaline Phosphatase Troponin I Total Protein Albumin Lipase Procalcitonin Serum HCG, Qual Negative Urine Color Yellow Urine Clarity Sl Cloudy Urine pH 5.0 Ur Specific [place] >= 1.030 H Urine Protein 100 H Urine Ketones >=160 H Urine Blood Moderate H Urine Nitrite Negative Urine Bilirubin Small H Urine Urobilinogen 0.2 Ur Leukocyte Esterase Negative Urine RBC 10-20 H Urine WBC 0-2 Ur Epithelial Cells Rare Urine Crystals Negative Urine Bacteria Rare Urine Casts Negative Urine Mucus Trace Ur Culture Indicated? No Urine Glucose 500 H Add-On Test Request 05/15/23 05/15/23 05/15/23 06:36 08:00 08:33 WBC RBC Hgb Hct MCV MCH MCHC RDW Plt Count MPV Immature Gran % Neutrophils % Lymphocytes % Monocytes % Eosinophils % Basophils % Nucleated RBC % Absolute Neutrophils Absolute Lymphocytes Absolute Monocytes Absolute Eosinophils Absolute Basophils VBG pH VBG pCO2 VBG pO2 VBG HCO3 VBG Total CO2 VBG O2 Saturation VBG Base Excess VBG Lactate 1.9 H Sodium 135 L Cancelled Potassium 4.7 D Cancelled Chloride 106 Cancelled Carbon Dioxide < 5.0 L* Cancelled Anion Gap 24.11021 H Cancelled BUN 20 H Cancelled Creatinine 0.9 Cancelled Est GFR (CKD-EPI 2020) 80.84 Cancelled Glucose 465 H Cancelled Calcium 8.1 L Cancelled Phosphorus Total Bilirubin AST ALT Alkaline Phosphatase Troponin I Total Protein Albumin Lipase Procalcitonin Serum HCG, Qual Urine Color Urine Clarity Urine pH Ur Specific [place] Urine Protein Urine Ketones Urine Blood Urine Nitrite Urine Bilirubin Urine Urobilinogen Ur Leukocyte Esterase Urine RBC Urine WBC Ur Epithelial Cells Urine Crystals Urine Bacteria Urine Casts Urine Mucus Ur Culture Indicated? Urine Glucose Add-On Test Request 05/15/23 05/15/23 05/15/23 08:35 08:35 08:35 WBC RBC Hgb Hct MCV MCH MCHC RDW Plt Count MPV Immature Gran % Neutrophils % Lymphocytes % Monocytes % Eosinophils % Basophils % Nucleated RBC % Absolute Neutrophils Absolute Lymphocytes Absolute Monocytes Absolute Eosinophils Absolute Basophils VBG pH 6.92 L* VBG pCO2 16 L* VBG pO2 53 VBG HCO3 3 L VBG Total CO2 3 L VBG O2 Saturation 86 VBG Base Excess -29 L VBG Lactate Sodium 138 Potassium 3.8 Chloride 108 H Carbon Dioxide < 5.0 L* Anion Gap 25.64043 H BUN 19 H Creatinine 0.9 Est GFR (CKD-EPI 2020) 80.84 Glucose 382 H Calcium 8.3 L Phosphorus Total Bilirubin AST ALT Alkaline Phosphatase Troponin I Total Protein Albumin Lipase Procalcitonin Serum HCG, Qual Urine Color Urine Clarity Urine pH Ur Specific [place] Urine Protein Urine Ketones Urine Blood Urine Nitrite Urine Bilirubin Urine Urobilinogen Ur Leukocyte Esterase Urine RBC Urine WBC Ur Epithelial Cells Urine Crystals Urine Bacteria Urine Casts Urine Mucus Ur Culture Indicated? Urine Glucose Add-On Test Request DONE 05/15/23 05/15/23 05/15/23 08:35 08:35 10:00 WBC RBC Hgb Hct MCV MCH MCHC RDW Plt Count MPV Immature Gran % Neutrophils % Lymphocytes % Monocytes % Eosinophils % Basophils % Nucleated RBC % Absolute Neutrophils Absolute Lymphocytes Absolute Monocytes Absolute Eosinophils Absolute Basophils VBG pH VBG pCO2 VBG pO2 VBG HCO3 VBG Total CO2 VBG O2 Saturation VBG Base Excess VBG Lactate Sodium Cancelled Potassium Cancelled Chloride Cancelled Carbon Dioxide Cancelled Anion Gap Cancelled BUN Cancelled Creatinine Cancelled Est GFR (CKD-EPI 2020) Cancelled Glucose Cancelled Calcium Cancelled Phosphorus 2.1 L Total Bilirubin AST ALT Alkaline Phosphatase Troponin I Total Protein Albumin Lipase Procalcitonin < 0.1 Serum HCG, Qual Urine Color Urine Clarity Urine pH Ur Specific [place] Urine Protein Urine Ketones Urine Blood Urine Nitrite Urine Bilirubin Urine Urobilinogen Ur Leukocyte Esterase Urine RBC Urine WBC Ur Epithelial Cells Urine Crystals Urine Bacteria Urine Casts Urine Mucus Ur Culture Indicated? Urine Glucose Add-On Test Request 05/15/23 05/15/23 05/15/23 10:00 10:00 11:26 WBC RBC Hgb Hct MCV MCH MCHC RDW Plt Count MPV Immature Gran % Neutrophils % Lymphocytes % Monocytes % Eosinophils % Basophils % Nucleated RBC % Absolute Neutrophils Absolute Lymphocytes Absolute Monocytes Absolute Eosinophils Absolute Basophils VBG pH VBG pCO2 VBG pO2 VBG HCO3 VBG Total CO2 VBG O2 Saturation VBG Base Excess VBG Lactate Sodium Cancelled 141 Cancelled Potassium Cancelled 3.3 L Cancelled Chloride Cancelled 112 H Cancelled Carbon Dioxide Cancelled 6.7 L Cancelled Anion Gap Cancelled 22.3 H Cancelled BUN Cancelled 17 Cancelled Creatinine Cancelled 0.8 Cancelled Est GFR (CKD-EPI 2020) Cancelled 93.12 Cancelled Glucose Cancelled 262 H Cancelled Calcium Cancelled 8.0 L Cancelled Phosphorus Total Bilirubin AST ALT Alkaline Phosphatase Troponin I Total Protein Albumin Lipase Procalcitonin Serum HCG, Qual Urine Color Urine Clarity Urine pH Ur Specific [place] Urine Protein Urine Ketones Urine Blood Urine Nitrite Urine Bilirubin Urine Urobilinogen Ur Leukocyte Esterase Urine RBC Urine WBC Ur Epithelial Cells Urine Crystals Urine Bacteria Urine Casts Urine Mucus Ur Culture Indicated? Urine Glucose Add-On Test Request 05/15/23 05/15/23 05/15/23 12:00 12:00 12:09 WBC RBC Hgb Hct MCV MCH MCHC RDW Plt Count MPV Immature Gran % Neutrophils % Lymphocytes % Monocytes % Eosinophils % Basophils % Nucleated RBC % Absolute Neutrophils Absolute Lymphocytes Absolute Monocytes Absolute Eosinophils Absolute Basophils VBG pH Cancelled 7.10 L* VBG pCO2 Cancelled 18 L* VBG pO2 Cancelled 38 VBG HCO3 Cancelled 6 L VBG Total CO2 Cancelled 5 L VBG O2 Saturation Cancelled 79 VBG Base Excess Cancelled -24 L VBG Lactate Sodium Cancelled Potassium Cancelled Chloride Cancelled Carbon Dioxide Cancelled Anion Gap Cancelled BUN Cancelled Creatinine Cancelled Est GFR (CKD-EPI 2020) Cancelled Glucose Cancelled Calcium Cancelled Phosphorus Total Bilirubin AST ALT Alkaline Phosphatase Troponin I Total Protein Albumin Lipase Procalcitonin Serum HCG, Qual Urine Color Urine Clarity Urine pH Ur Specific [place] Urine Protein Urine Ketones Urine Blood Urine Nitrite Urine Bilirubin Urine Urobilinogen Ur Leukocyte Esterase Urine RBC Urine WBC Ur Epithelial Cells Urine Crystals Urine Bacteria Urine Casts Urine Mucus Ur Culture Indicated? Urine Glucose Add-On Test Request 05/15/23 05/15/23 05/15/23 12:09 14:00 14:00 WBC RBC Hgb Hct MCV MCH MCHC RDW Plt Count MPV Immature Gran % Neutrophils % Lymphocytes % Monocytes % Eosinophils % Basophils % Nucleated RBC % Absolute Neutrophils Absolute Lymphocytes Absolute Monocytes Absolute Eosinophils Absolute Basophils VBG pH VBG pCO2 VBG pO2 VBG HCO3 VBG Total CO2 VBG O2 Saturation VBG Base Excess VBG Lactate Sodium 142 Cancelled Cancelled Potassium 3.6 Cancelled Cancelled Chloride 114 H Cancelled Cancelled Carbon Dioxide 6.1 L Cancelled Cancelled Anion Gap 21.9 H Cancelled Cancelled BUN 17 Cancelled Cancelled Creatinine 0.7 Cancelled Cancelled Est GFR (CKD-EPI 2020) 109.30 Cancelled Cancelled Glucose 228 H Cancelled Cancelled Calcium 7.7 L Cancelled Cancelled Phosphorus Total Bilirubin AST ALT Alkaline Phosphatase Troponin I Total Protein Albumin Lipase Procalcitonin Serum HCG, Qual Urine Color Urine Clarity Urine pH Ur Specific [place] Urine Protein Urine Ketones Urine Blood Urine Nitrite Urine Bilirubin Urine Urobilinogen Ur Leukocyte Esterase Urine RBC Urine WBC Ur Epithelial Cells Urine Crystals Urine Bacteria Urine Casts Urine Mucus Ur Culture Indicated? Urine Glucose Add-On Test Request 05/15/23 05/15/23 05/15/23 14:00 14:30 16:00 WBC RBC Hgb Hct MCV MCH MCHC RDW Plt Count MPV Immature Gran % Neutrophils % Lymphocytes % Monocytes % Eosinophils % Basophils % Nucleated RBC % Absolute Neutrophils Absolute Lymphocytes Absolute Monocytes Absolute Eosinophils Absolute Basophils VBG pH Cancelled VBG pCO2 Cancelled VBG pO2 Cancelled VBG HCO3 Cancelled VBG Total CO2 Cancelled VBG O2 Saturation Cancelled VBG Base Excess Cancelled VBG Lactate Sodium 139 Cancelled Potassium 3.4 L Cancelled Chloride 112 H Cancelled Carbon Dioxide 10.8 L Cancelled Anion Gap 16.2 H Cancelled BUN 14 Cancelled Creatinine 0.7 Cancelled Est GFR (CKD-EPI 2020) 109.30 Cancelled Glucose 228 H Cancelled Calcium 7.8 L Cancelled Phosphorus Total Bilirubin AST ALT Alkaline Phosphatase Troponin I Total Protein Albumin Lipase Procalcitonin Serum HCG, Qual Urine Color Urine Clarity Urine pH Ur Specific [place] Urine Protein Urine Ketones Urine Blood Urine Nitrite Urine Bilirubin Urine Urobilinogen Ur Leukocyte Esterase Urine RBC Urine WBC Ur Epithelial Cells Urine Crystals Urine Bacteria Urine Casts Urine Mucus Ur Culture Indicated? Urine Glucose Add-On Test Request 05/15/23 05/15/23 05/15/23 16:00 16:00 18:00 WBC RBC Hgb Hct MCV MCH MCHC RDW Plt Count MPV Immature Gran % Neutrophils % Lymphocytes % Monocytes % Eosinophils % Basophils % Nucleated RBC % Absolute Neutrophils Absolute Lymphocytes Absolute Monocytes Absolute Eosinophils Absolute Basophils VBG pH Cancelled VBG pCO2 Cancelled VBG pO2 Cancelled VBG HCO3 Cancelled VBG Total CO2 Cancelled VBG O2 Saturation Cancelled VBG Base Excess Cancelled VBG Lactate Sodium Cancelled Cancelled Potassium Cancelled Cancelled Chloride Cancelled Cancelled Carbon Dioxide Cancelled Cancelled Anion Gap Cancelled Cancelled BUN Cancelled Cancelled Creatinine Cancelled Cancelled Est GFR (CKD-EPI 2020) Cancelled Cancelled Glucose Cancelled Cancelled Calcium Cancelled Cancelled Phosphorus Total Bilirubin AST ALT Alkaline Phosphatase Troponin I Total Protein Albumin Lipase Procalcitonin Serum HCG, Qual Urine Color Urine Clarity Urine pH Ur Specific [place] Urine Protein Urine Ketones Urine Blood Urine Nitrite Urine Bilirubin Urine Urobilinogen Ur Leukocyte Esterase Urine RBC Urine WBC Ur Epithelial Cells Urine Crystals Urine Bacteria Urine Casts Urine Mucus Ur Culture Indicated? Urine Glucose Add-On Test Request 05/15/23 05/15/23 05/15/23 18:00 18:00 20:00 WBC RBC Hgb Hct MCV MCH MCHC RDW Plt Count MPV Immature Gran % Neutrophils % Lymphocytes % Monocytes % Eosinophils % Basophils % Nucleated RBC % Absolute Neutrophils Absolute Lymphocytes Absolute Monocytes Absolute Eosinophils Absolute Basophils VBG pH Cancelled VBG pCO2 Cancelled VBG pO2 Cancelled VBG HCO3 Cancelled VBG Total CO2 Cancelled VBG O2 Saturation Cancelled VBG Base Excess Cancelled VBG Lactate Sodium Cancelled Cancelled Potassium Cancelled Cancelled Chloride Cancelled Cancelled Carbon Dioxide Cancelled Cancelled Anion Gap Cancelled Cancelled BUN Cancelled Cancelled Creatinine Cancelled Cancelled Est GFR (CKD-EPI 2020) Cancelled Cancelled Glucose Cancelled Cancelled Calcium Cancelled Cancelled Phosphorus Total Bilirubin AST ALT Alkaline Phosphatase Troponin I Total Protein Albumin Lipase Procalcitonin Serum HCG, Qual Urine Color Urine Clarity Urine pH Ur Specific [place] Urine Protein Urine Ketones Urine Blood Urine Nitrite Urine Bilirubin Urine Urobilinogen Ur Leukocyte Esterase Urine RBC Urine WBC Ur Epithelial Cells Urine Crystals Urine Bacteria Urine Casts Urine Mucus Ur Culture Indicated? Urine Glucose Add-On Test Request 05/15/23 05/15/23 05/15/23 20:00 20:00 22:00 WBC RBC Hgb Hct MCV MCH MCHC RDW Plt Count MPV Immature Gran % Neutrophils % Lymphocytes % Monocytes % Eosinophils % Basophils % Nucleated RBC % Absolute Neutrophils Absolute Lymphocytes Absolute Monocytes Absolute Eosinophils Absolute Basophils VBG pH Cancelled VBG pCO2 Cancelled VBG pO2 Cancelled VBG HCO3 Cancelled VBG Total CO2 Cancelled VBG O2 Saturation Cancelled VBG Base Excess Cancelled VBG Lactate Sodium Cancelled Cancelled Potassium Cancelled Cancelled Chloride Cancelled Cancelled Carbon Dioxide Cancelled Cancelled Anion Gap Cancelled Cancelled BUN Cancelled Cancelled Creatinine Cancelled Cancelled Est GFR (CKD-EPI 2020) Cancelled Cancelled Glucose Cancelled Cancelled Calcium Cancelled Cancelled Phosphorus Total Bilirubin AST ALT Alkaline Phosphatase Troponin I Total Protein Albumin Lipase Procalcitonin Serum HCG, Qual Urine Color Urine Clarity Urine pH Ur Specific [place] Urine Protein Urine Ketones Urine Blood Urine Nitrite Urine Bilirubin Urine Urobilinogen Ur Leukocyte Esterase Urine RBC Urine WBC Ur Epithelial Cells Urine Crystals Urine Bacteria Urine Casts Urine Mucus Ur Culture Indicated? Urine Glucose Add-On Test Request 05/15/23 05/15/23 22:00 Unknown WBC RBC Hgb Hct MCV MCH MCHC RDW Plt Count MPV Immature Gran % Neutrophils % Lymphocytes % Monocytes % Eosinophils % Basophils % Nucleated RBC % Absolute Neutrophils Absolute Lymphocytes Absolute Monocytes Absolute Eosinophils Absolute Basophils VBG pH Cancelled Cancelled VBG pCO2 Cancelled Cancelled VBG pO2 Cancelled Cancelled VBG HCO3 Cancelled Cancelled VBG Total CO2 Cancelled Cancelled VBG O2 Saturation Cancelled Cancelled VBG Base Excess Cancelled Cancelled VBG Lactate Sodium Potassium Chloride Carbon Dioxide Anion Gap BUN Creatinine Est GFR (CKD-EPI 2020) Glucose Calcium Phosphorus Total Bilirubin AST ALT Alkaline Phosphatase Troponin I Total Protein Albumin Lipase Procalcitonin Serum HCG, Qual Urine Color Urine Clarity Urine pH Ur Specific [place] Urine Protein Urine Ketones Urine Blood Urine Nitrite Urine Bilirubin Urine Urobilinogen Ur Leukocyte Esterase Urine RBC Urine WBC Ur Epithelial Cells Urine Crystals Urine Bacteria Urine Casts Urine Mucus Ur Culture Indicated? Urine Glucose Add-On Test Request Procedures Central Line Placement Right Femoral: Additional comments: Pre-op Dx: DKA, need for IV access Post-op Dx: same Procedure: Attempted right subclavian central line Right Femoral central line placement Surgeon: Coral Douglass MD Anesthesia: 2 % Lidocaine Blood loss: 10 cc Specimen: none Complications: no immediate complications Procedure: The patient was placed in a supine position on the ICU bed. The head of the bed was lowered. A time out was done and the patients name, and procedure to be done were reviewed. Sharps were counted. The right chest area was prepped and draped in a standard fashion. Next 5 cc of 2% Lidocaine was injected into the dermis and subcutaneous tissue along the right clavicle. The introducer needle was then slowly advanced into the right subclavian vein. Once I was able to pull venous blood into the syringe, the syringe was removed from the needle. The guidewire was then attempted to be placed but it would not easily go in. 3 asttempts were made and each time the guide wire would not advance. The Right groin and thigh was then prepped and draped in a standard fashion with chlorhexidine. Next 5 cc of 2% Lidocaine was injected into the dermis and subcutaneous tissue along the anterior thigh. An US was used to identify the left femoral vein. It was collapsed. The introducer needle was then slowly advanced into the femoral vein. Once I was able to pull venous blood into the syringe, the syringe was removed from the needle. The guidewire was then placed easily without resistance into the femoral vein. The needle was removed. A small incision was made with an 11 blade next to the guidewire. The dilator was then placed over the guidewire into the vein. The dilator was removed and the tripple lumen cather was placed over the guidewire into the vein to 16 cm. The guidewire was removed and needless valves were placed on each lumen. Next each lumen was then aspirated and flushed with sterile saline. The Central line was then secured in place with 2-0 silk suture. The skin was cleaned and dried and an antibiotic wheel was applied at the skin entrance. An occlusive dressing was then applied. The drapes were removed. Sharps were counted and were correct at the end of the procedure. The patient tolerated the procedure well.
[2023-05-15 16:33] LABS: BE (Venous) -17 mmol/L (-2-3); HCO3 (Venous) 10 mmol/L (23-28); O2 Sat (Venous) 92 %; TCO2 (Venous) 10 mmol/L (24-29); pCO2 (Venous) 25 mmHg (41-51); pH (Venous) 7.23 (7.31-7.41); pO2 (Venous) 50 mmHg
[2023-05-15 16:45] LABS: Anion Gap 15.5 mmol/L (3-11); BUN 12 mg/dL (7-18); CO2 11.5 mmol/L (21.0-32.0); CREATININE 0.7 mg/dL (0.55-1.02); Chloride 115 mmol/L (98-107); Glucose 215 mg/dL (74-106); Potassium 3.3 mmol/L (3.5-5.1); Sodium 142 mmol/L (136-145)
[2023-05-15] MEDS: Metoclopramide 10 MG/2 ML VIAL IVP (17:09)
[2023-05-15] MEDS: POTASSIUM CHLORIDE/D5-0.9%NACL 1,000 ML 150 MEQ IV (18:35)
[2023-05-15 18:47] LABS: Anion Gap 11.4 mmol/L (3-11); BUN 10 mg/dL (7-18); CO2 13.6 mmol/L (21.0-32.0); CREATININE 0.7 mg/dL (0.55-1.02); Chloride 116 mmol/L (98-107); Glucose 232 mg/dL (74-106); Potassium 3.2 mmol/L (3.5-5.1); Sodium 141 mmol/L (136-145)
[2023-05-15 20:01] LABS: BE (Venous) -14 mmol/L (-2-3); HCO3 (Venous) 12 mmol/L (23-28); pCO2 (Venous) 26 mmHg (41-51); pH (Venous) 7.28 (7.31-7.41); pO2 (Venous) 60 mmHg
[2023-05-15 20:16] LABS: Magnesium 1.4 mg/dL (1.8-2.4)
[2023-05-15 20:17] LABS: TCO2 (Venous) 11 mmol/L (24-29)
[2023-05-15 20:18] LABS: O2 Sat (Venous) 95 %
[2023-05-15 20:22] LABS: ALT 13 U/L (14-59); AST 9 U/L (15-37); Albumin 3.2 g/dL (3.4-5.0); Alkaline Phosphatase 74 U/L (46-116); BUN 10 mg/dL (7-18); Bilirubin, Total 0.3 mg/dL (0.2-1.0); CREATININE 0.7 mg/dL (0.55-1.02); Calcium 8.2 mg/dL (8.5-10.1); Chloride 117 mmol/L (98-107); Glucose 210 mg/dL (74-106); Potassium 3.2 mmol/L (3.5-5.1); Sodium 142 mmol/L (136-145); Total Protein 5.9 g/dL (6.4-8.2)
[2023-05-15] MEDS: INSULIN REGULAR IN 0.9 % NACL 100 UNIT/100 ML BAG 13 UNIT IV (21:10)
[2023-05-15] MEDS: MAGNESIUM SULFATE 4 GM/100 ML BAG IVPB (21:48)
[2023-05-15 22:25] LABS: BE (Venous) -12 mmol/L (-2-3); HCO3 (Venous) 15 mmol/L (23-28); O2 Sat (Venous) 80 %; TCO2 (Venous) 14 mmol/L (24-29); pCO2 (Venous) 32 mmHg (41-51); pH (Venous) 7.27 (7.31-7.41); pO2 (Venous) 35 mmHg
[2023-05-15 22:48] LABS: BUN 10 mg/dL (7-18); CREATININE 0.7 mg/dL (0.55-1.02); Calcium 8.6 mg/dL (8.5-10.1); Chloride 117 mmol/L (98-107); Glucose 137 mg/dL (74-106); Potassium 3.3 mmol/L (3.5-5.1); Sodium 143 mmol/L (136-145)
[2023-05-15 23:11] LABS: PHOSPHORUS < 2.0 mg/dL (2.6-4.7)
[2023-05-16] VITALS (49 sets, daily range): BP systolic 118–157; BP diastolic 62–89; PULSE 67–112; RESP 12–22; TEMP 36.4–37.3; O2SAT 97–100
[2023-05-16] MEDS: Dextrose 50%-Water 25 GM/50 ML SYR (00:20)
[2023-05-16 00:38] LABS: BE (Venous) -12 mmol/L (-2-3); HCO3 (Venous) 15 mmol/L (23-28); O2 Sat (Venous) 98 %; TCO2 (Venous) 14 mmol/L (24-29); pCO2 (Venous) 31 mmHg (41-51); pH (Venous) 7.29 (7.31-7.41); pO2 (Venous) 73 mmHg
[2023-05-16] MEDS: POTASSIUM CHLORIDE/D5-0.9%NACL 1,000 ML 150 MEQ IV ×2 (00:54→07:36)
[2023-05-16 01:00] LABS: Anion Gap 8.6 mmol/L (3-11); BUN 9 mg/dL (7-18); CO2 16.4 mmol/L (21.0-32.0); CREATININE 0.5 mg/dL (0.55-1.02); Calcium 8.3 mg/dL (8.5-10.1); Chloride 116 mmol/L (98-107); Estimated GFR 118.53 (mL/min/1.73m2); Glucose 70 mg/dL (74-106); Potassium 3.1 mmol/L (3.5-5.1); Sodium 141 mmol/L (136-145)
[2023-05-16] MEDS: POTASSIUM CHLORIDE 20 MEQ/100 ML BAG 50 MEQ IVPB (01:33)
[2023-05-16 02:00] LABS: BE (Venous) -13 mmol/L (-2-3); HCO3 (Venous) 14 mmol/L (23-28); O2 Sat (Venous) 98 %; TCO2 (Venous) 13 mmol/L (24-29); pCO2 (Venous) 29 mmHg (41-51); pH (Venous) 7.28 (7.31-7.41); pO2 (Venous) 78 mmHg
[2023-05-16 02:13] LABS: Anion Gap 10.4 mmol/L (3-11); BUN 8 mg/dL (7-18); CO2 14.6 mmol/L (21.0-32.0); CREATININE 0.4 mg/dL (0.55-1.02); Calcium 7.2 mg/dL (8.5-10.1); Chloride 117 mmol/L (98-107); Estimated GFR 125.08 (mL/min/1.73m2); Glucose 156 mg/dL (74-106); Sodium 142 mmol/L (136-145)
[2023-05-16 02:14] LABS: Potassium 2.8 mmol/L (3.5-5.1)
[2023-05-16 04:07] LABS: BE (Venous) -13 mmol/L (-2-3); HCO3 (Venous) 14 mmol/L (23-28); O2 Sat (Venous) 98 %; TCO2 (Venous) 13 mmol/L (24-29); pCO2 (Venous) 31 mmHg (41-51); pH (Venous) 7.28 (7.31-7.41); pO2 (Venous) 75 mmHg
[2023-05-16 04:19] LABS: BUN 8 mg/dL (7-18); CREATININE 0.4 mg/dL (0.55-1.02); Calcium 7.7 mg/dL (8.5-10.1); Chloride 115 mmol/L (98-107); Estimated GFR 125.08 (mL/min/1.73m2); Glucose 224 mg/dL (74-106); Potassium 4.4 mmol/L (3.5-5.1); Sodium 140 mmol/L (136-145)
[2023-05-16] MEDS: Normal Saline Flush 10 ML SYR IVP (06:29)
[2023-05-16 06:37] LABS: BE (Venous) -11 mmol/L (-2-3); HCO3 (Venous) 16 mmol/L (23-28); O2 Sat (Venous) 92 %; TCO2 (Venous) 15 mmol/L (24-29); pCO2 (Venous) 33 mmHg (41-51); pH (Venous) 7.28 (7.31-7.41); pO2 (Venous) 51 mmHg
--- NOTE | 2023-05-16 06:54 | PUCC_ITS ---
General Date of Service Date of service: 05/16/23 Time of Service: 06:54 Reason for Admission to ICU: DKA Assessment and Plan Assessment and plan (1) DKA (diabetic ketoacidosis): Status: Acute (2) Leukocytosis: Status: Acute (3) Hypocalcemia: Status: Acute (4) Hypophosphatemia: Status: Acute (5) Type 2 diabetes mellitus: Status: Chronic (6) HTN (hypertension): Status: Chronic (7) Tachycardia: Status: Acute Assessment and plan: This is a 42 yo admitted to the ICU for DKA in the setting of insulin noncompliance related to access issues. Her DKA is improving, however her bicarb should really be above 18 prior to stopping her drip. She also did not receive any long acting Lantus yet. When given on admission is does decrease time to insulin infusion liberation. we will give it to her this morning. She does have a diet ordered as well, which she will need to tolerate prior to stopping the insulin infusion. He phosphate is very low and recommend repleting this to 4.0 Recommendations Pulmonary: No acute concerns Cardiac: Tachycardia - reactive HTN - on losartan Renal: Hypocalcemia - monitor Hypophosphatemia - replete to 4.0 I&O: Intake & Output 05/13/23 05/14/23 05/15/23 05/16/23 23:59 23:59 23:59 23:59 Intake Total 5953.216 / 6453.216 2412.500 / 2412.500 Output Total 2590 / 2740 500 / 500 Balance 3363.216 / 3713.216 1912.500 / 1912.500 Weight 89 kg 91.3 kg Daily Fluid Goal:: even GI Nutrition: Diet has been ordered Infectious Disease: No acute concerns Hematologic: Leukocytosis - reactive and improving Neurologic: No acute concerns Endocrine: DKA - continue insulin infusion until patient tolerates diet and bicarb is over 18 - 60U Lantus daily ordered - once off insulin infusion can add SSI - due to non compliance/lack of access to insulin - no infectious symptoms Lines: PIV Weiner - can be discontinued Prophylaxis: not on DVT ppx - recommend Lovenox be started Code Status: Resuscitation Status Full Code Subjective Critical and life-threatening events over the past 24 hours: This is a 42 yo who is admitted to the ICU for DKA. She is a type 2 diabetic and states she has been without insulin for 8 months. She has had 2 prior episodes of DKA. She states she is having issues with getting her insulin due to insurance/cost/no PCP. This morning she is feeling better. She is on insulin and D51/2NS. She was never given her long acting Lantus. Her GAP is closed, however her bicarb remains low (below 18). She has a diet ordered. She denies having any infectious symptoms prior to presenting to ED. Exam Narrative Exam Narrative: Gen: NAD, normal respiratory effort, well-nourished HENT: PERRL, opoor dentition Chest: No respiratory distress, normal appearance of chest, clear to auscultation bilaterally, no crackles or wheezes, normal inspiratory effort Heart: regular rate and rhythym, no murmurs, rubs or gallops Abdomen: Non-distended, soft, non tender Extremities: No clubbing, edema, cyanosis, rashes Neuro: AAOx3 , non focal Psych: cooperative, appropriate mental affect Most Recent VS/Results Last Vital Signs Temp 36.4 C L 05/16/23 06:29 Pulse 103 H 05/16/23 06:01 Resp 12 05/16/23 04:00 BP 145/68 H 05/16/23 06:01 Pulse Ox 100 05/16/23 04:00 Laboratory Results - last 24 hr 05/15/23 05/15/23 05/15/23 06:00 06:36 08:00 VBG pH VBG pCO2 VBG pO2 VBG HCO3 VBG Total CO2 VBG O2 Saturation VBG Base Excess VBG Lactate Sodium Cancelled 135 L Cancelled Potassium Cancelled 4.7 D Cancelled Chloride Cancelled 106 Cancelled Carbon Dioxide Cancelled < 5.0 L* Cancelled Anion Gap Cancelled 24.70496 H Cancelled BUN Cancelled 20 H Cancelled Creatinine Cancelled 0.9 Cancelled Est GFR (CKD-EPI 2020) Cancelled 80.84 Cancelled Glucose Cancelled 465 H Cancelled Calcium Cancelled 8.1 L Cancelled Phosphorus Magnesium Total Bilirubin AST ALT Alkaline Phosphatase Total Protein Albumin Procalcitonin Add-On Test Request 05/15/23 05/15/23 05/15/23 08:33 08:35 08:35 VBG pH VBG pCO2 VBG pO2 VBG HCO3 VBG Total CO2 VBG O2 Saturation VBG Base Excess VBG Lactate 1.9 H Sodium 138 Potassium 3.8 Chloride 108 H Carbon Dioxide < 5.0 L* Anion Gap 25.40036 H BUN 19 H Creatinine 0.9 Est GFR (CKD-EPI 2020) 80.84 Glucose 382 H Calcium 8.3 L Phosphorus Magnesium Total Bilirubin AST ALT Alkaline Phosphatase Total Protein Albumin Procalcitonin Add-On Test Request DONE 05/15/23 05/15/23 05/15/23 08:35 08:35 08:35 VBG pH 6.92 L* VBG pCO2 16 L* VBG pO2 53 VBG HCO3 3 L VBG Total CO2 3 L VBG O2 Saturation 86 VBG Base Excess -29 L VBG Lactate Sodium Potassium Chloride Carbon Dioxide Anion Gap BUN Creatinine Est GFR (CKD-EPI 2020) Glucose Calcium Phosphorus 2.1 L Magnesium Total Bilirubin AST ALT Alkaline Phosphatase Total Protein Albumin Procalcitonin < 0.1 Add-On Test Request 05/15/23 05/15/23 05/15/23 10:00 10:00 10:00 VBG pH VBG pCO2 VBG pO2 VBG HCO3 VBG Total CO2 VBG O2 Saturation VBG Base Excess VBG Lactate Sodium Cancelled Cancelled 141 Potassium Cancelled Cancelled 3.3 L Chloride Cancelled Cancelled 112 H Carbon Dioxide Cancelled Cancelled 6.7 L Anion Gap Cancelled Cancelled 22.3 H BUN Cancelled Cancelled 17 Creatinine Cancelled Cancelled 0.8 Est GFR (CKD-EPI 2020) Cancelled Cancelled 93.12 Glucose Cancelled Cancelled 262 H Calcium Cancelled Cancelled 8.0 L Phosphorus Magnesium Total Bilirubin AST ALT Alkaline Phosphatase Total Protein Albumin Procalcitonin Add-On Test Request 05/15/23 05/15/23 05/15/23 11:26 12:00 12:00 VBG pH Cancelled VBG pCO2 Cancelled VBG pO2 Cancelled VBG HCO3 Cancelled VBG Total CO2 Cancelled VBG O2 Saturation Cancelled VBG Base Excess Cancelled VBG Lactate Sodium Cancelled Cancelled Potassium Cancelled Cancelled Chloride Cancelled Cancelled Carbon Dioxide Cancelled Cancelled Anion Gap Cancelled Cancelled BUN Cancelled Cancelled Creatinine Cancelled Cancelled Est GFR (CKD-EPI 2020) Cancelled Cancelled Glucose Cancelled Cancelled Calcium Cancelled Cancelled Phosphorus Magnesium Total Bilirubin AST ALT Alkaline Phosphatase Total Protein Albumin Procalcitonin Add-On Test Request 05/15/23 05/15/23 05/15/23 12:09 12:09 14:00 VBG pH 7.10 L* VBG pCO2 18 L* VBG pO2 38 VBG HCO3 6 L VBG Total CO2 5 L VBG O2 Saturation 79 VBG Base Excess -24 L VBG Lactate Sodium 142 Cancelled Potassium 3.6 Cancelled Chloride 114 H Cancelled Carbon Dioxide 6.1 L Cancelled Anion Gap 21.9 H Cancelled BUN 17 Cancelled Creatinine 0.7 Cancelled Est GFR (CKD-EPI 2020) 109.30 Cancelled Glucose 228 H Cancelled Calcium 7.7 L Cancelled Phosphorus Magnesium Total Bilirubin AST ALT Alkaline Phosphatase Total Protein Albumin Procalcitonin Add-On Test Request 05/15/23 05/15/23 05/15/23 14:00 14:00 14:30 VBG pH Cancelled VBG pCO2 Cancelled VBG pO2 Cancelled VBG HCO3 Cancelled VBG Total CO2 Cancelled VBG O2 Saturation Cancelled VBG Base Excess Cancelled VBG Lactate Sodium Cancelled 139 Potassium Cancelled 3.4 L Chloride Cancelled 112 H Carbon Dioxide Cancelled 10.8 L Anion Gap Cancelled 16.2 H BUN Cancelled 14 Creatinine Cancelled 0.7 Est GFR (CKD-EPI 2020) Cancelled 109.30 Glucose Cancelled 228 H Calcium Cancelled 7.8 L Phosphorus Magnesium Total Bilirubin AST ALT Alkaline Phosphatase Total Protein Albumin Procalcitonin Add-On Test Request 05/15/23 05/15/23 05/15/23 16:00 16:00 16:00 VBG pH Cancelled VBG pCO2 Cancelled VBG pO2 Cancelled VBG HCO3 Cancelled VBG Total CO2 Cancelled VBG O2 Saturation Cancelled VBG Base Excess Cancelled VBG Lactate Sodium Cancelled Cancelled Potassium Cancelled Cancelled Chloride Cancelled Cancelled Carbon Dioxide Cancelled Cancelled Anion Gap Cancelled Cancelled BUN Cancelled Cancelled Creatinine Cancelled Cancelled Est GFR (CKD-EPI 2020) Cancelled Cancelled Glucose Cancelled Cancelled Calcium Cancelled Cancelled Phosphorus Magnesium Total Bilirubin AST ALT Alkaline Phosphatase Total Protein Albumin Procalcitonin Add-On Test Request 05/15/23 05/15/23 05/15/23 16:29 16:29 18:00 VBG pH 7.23 L VBG pCO2 25 L VBG pO2 50 VBG HCO3 10 L VBG Total CO2 10 L VBG O2 Saturation 92 VBG Base Excess -17 L VBG Lactate Sodium 142 Cancelled Potassium 3.3 L Cancelled Chloride 115 H Cancelled Carbon Dioxide 11.5 L Cancelled Anion Gap 15.5 H Cancelled BUN 12 Cancelled Creatinine 0.7 Cancelled Est GFR (CKD-EPI 2020) 109.30 Cancelled Glucose 215 H Cancelled Calcium 8.0 L Cancelled Phosphorus Magnesium Total Bilirubin AST ALT Alkaline Phosphatase Total Protein Albumin Procalcitonin Add-On Test Request 05/15/23 05/15/23 05/15/23 18:00 18:00 18:00 VBG pH Cancelled VBG pCO2 Cancelled VBG pO2 Cancelled VBG HCO3 Cancelled VBG Total CO2 Cancelled VBG O2 Saturation Cancelled VBG Base Excess Cancelled VBG Lactate Sodium Cancelled 141 Potassium Cancelled 3.2 L Chloride Cancelled 116 H Carbon Dioxide Cancelled 13.6 L Anion Gap Cancelled 11.4 H BUN Cancelled 10 Creatinine Cancelled 0.7 Est GFR (CKD-EPI 2020) Cancelled 109.30 Glucose Cancelled 232 H Calcium Cancelled 8.0 L Phosphorus Magnesium Total Bilirubin AST ALT Alkaline Phosphatase Total Protein Albumin Procalcitonin Add-On Test Request 05/15/23 05/15/23 05/15/23 18:50 19:50 19:50 VBG pH VBG pCO2 VBG pO2 VBG HCO3 VBG Total CO2 VBG O2 Saturation VBG Base Excess VBG Lactate Sodium 142 Potassium 3.2 L Chloride 117 H Carbon Dioxide 15.0 L Anion Gap 10.0 BUN 10 Creatinine 0.7 Est GFR (CKD-EPI 2020) 109.30 Glucose 210 H Calcium 8.2 L Phosphorus Magnesium 1.4 L Total Bilirubin 0.3 AST 9 L ALT 13 L Alkaline Phosphatase 74 Total Protein 5.9 L Albumin 3.2 L Procalcitonin Add-On Test Request TNP 05/15/23 05/15/23 05/15/23 19:50 20:00 20:00 VBG pH 7.28 L VBG pCO2 26 L VBG pO2 60 VBG HCO3 12 L VBG Total CO2 11 L VBG O2 Saturation 95 VBG Base Excess -14 L VBG Lactate Sodium Cancelled Cancelled Potassium Cancelled Cancelled Chloride Cancelled Cancelled Carbon Dioxide Cancelled Cancelled Anion Gap Cancelled Cancelled BUN Cancelled Cancelled Creatinine Cancelled Cancelled Est GFR (CKD-EPI 2020) Cancelled Cancelled Glucose Cancelled Cancelled Calcium Cancelled Cancelled Phosphorus Magnesium Total Bilirubin AST ALT Alkaline Phosphatase Total Protein Albumin Procalcitonin Add-On Test Request 05/15/23 05/15/23 05/15/23 20:00 22:00 22:00 VBG pH Cancelled Cancelled VBG pCO2 Cancelled Cancelled VBG pO2 Cancelled Cancelled VBG HCO3 Cancelled Cancelled VBG Total CO2 Cancelled Cancelled VBG O2 Saturation Cancelled Cancelled VBG Base Excess Cancelled Cancelled VBG Lactate Sodium Cancelled Potassium Cancelled Chloride Cancelled Carbon Dioxide Cancelled Anion Gap Cancelled BUN Cancelled Creatinine Cancelled Est GFR (CKD-EPI 2020) Cancelled Glucose Cancelled Calcium Cancelled Phosphorus Magnesium Total Bilirubin AST ALT Alkaline Phosphatase Total Protein Albumin Procalcitonin Add-On Test Request 05/15/23 05/15/23 05/15/23 22:05 22:05 22:05 VBG pH 7.27 L VBG pCO2 32 L VBG pO2 35 VBG HCO3 15 L VBG Total CO2 14 L VBG O2 Saturation 80 VBG Base Excess -12 L VBG Lactate Sodium 143 Potassium 3.3 L Chloride 117 H Carbon Dioxide 15.0 L Anion Gap 11.0 BUN 10 Creatinine 0.7 Est GFR (CKD-EPI 2020) 109.30 Glucose 137 H Calcium 8.6 Phosphorus < 2.0 L Magnesium Total Bilirubin AST ALT Alkaline Phosphatase Total Protein Albumin Procalcitonin Add-On Test Request 05/15/23 05/16/23 05/16/23 Unknown 00:10 00:10 VBG pH Cancelled 7.29 L VBG pCO2 Cancelled 31 L VBG pO2 Cancelled 73 VBG HCO3 Cancelled 15 L VBG Total CO2 Cancelled 14 L VBG O2 Saturation Cancelled 98 VBG Base Excess Cancelled -12 L VBG Lactate Sodium 141 Potassium 3.1 L Chloride 116 H Carbon Dioxide 16.4 L Anion Gap 8.6 BUN 9 Creatinine 0.5 L Est GFR (CKD-EPI 2020) 118.53 Glucose 70 L Calcium 8.3 L Phosphorus Magnesium Total Bilirubin AST ALT Alkaline Phosphatase Total Protein Albumin Procalcitonin Add-On Test Request 05/16/23 05/16/23 05/16/23 01:50 01:50 03:55 VBG pH 7.28 L VBG pCO2 29 L VBG pO2 78 VBG HCO3 14 L VBG Total CO2 13 L VBG O2 Saturation 98 VBG Base Excess -13 L VBG Lactate Sodium 142 140 Potassium 2.8 L* 4.4 D Chloride 117 H 115 H Carbon Dioxide 14.6 L 16.0 L Anion Gap 10.4 9.0 BUN 8 8 Creatinine 0.4 L 0.4 L Est GFR (CKD-EPI 2020) 125.08 125.08 Glucose 156 H 224 H Calcium 7.2 L 7.7 L Phosphorus Magnesium Total Bilirubin AST ALT Alkaline Phosphatase Total Protein Albumin Procalcitonin Add-On Test Request 05/16/23 05/16/23 03:55 06:00 VBG pH 7.28 L 7.28 L VBG pCO2 31 L 33 L VBG pO2 75 51 VBG HCO3 14 L 16 L VBG Total CO2 13 L 15 L VBG O2 Saturation 98 92 VBG Base Excess -13 L -11 L VBG Lactate Sodium Potassium Chloride Carbon Dioxide Anion Gap BUN Creatinine Est GFR (CKD-EPI 2020) Glucose Calcium Phosphorus Magnesium Total Bilirubin AST ALT Alkaline Phosphatase Total Protein Albumin Procalcitonin Add-On Test Request Review of Systems All systems reviewed & are unremarkable except as noted in HPI and below Time spent with patient Time spent in Critical Care: 45 Time spent in Critical care included: Chart review, Documenting critically ill care, Time at immediate bedside and Discussing critically ill care with other medical staff Multi-Disciplinary Checklist Lines/Tubes CENTRAL LINE: no ARTERIAL LINE: no WEINER: yes, Weiner Day#: 1 ENDOTRACHEAL TUBE: no ICU Maintenance GLUCOSE 140-180mg/dL: yes NUTRITION AT GOAL: no, Reason/Intervention: diet ordered for her to start eating today PRESSURE ULCER: no RESTRAINTS: no ANTIBIOTICS(if yes, consider Stewardship): No Social Issues FAMILY UPDATED: no, Reason/Intervention: patient able PT/OT: no, 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
[2023-05-16 06:56] LABS: PHOSPHORUS < 2.0 mg/dL (2.6-4.7)
[2023-05-16 07:03] LABS: Anion Gap 7.6 mmol/L (3-11); BUN 6 mg/dL (7-18); CO2 17.4 mmol/L (21.0-32.0); CREATININE 0.4 mg/dL (0.55-1.02); Calcium 7.7 mg/dL (8.5-10.1); Chloride 115 mmol/L (98-107); Estimated GFR 125.08 (mL/min/1.73m2); Glucose 222 mg/dL (74-106); Potassium 4.3 mmol/L (3.5-5.1); Sodium 140 mmol/L (136-145)
[2023-05-16] MEDS: Atorvastatin 40 MG TAB PO (08:35)
[2023-05-16] MEDS: Insulin Glargine 300 UNITS/3 ML PEN 60 UNITS SC (08:36)
[2023-05-16] MEDS: Losartan 25 MG TAB PO (08:36)
[2023-05-16] MEDS: Gabapentin 100 MG CAP 300 MG PO (08:46)
[2023-05-16 08:48] LABS: BE (Venous) -11 mmol/L (-2-3); HCO3 (Venous) 15 mmol/L (23-28); O2 Sat (Venous) 88 %; TCO2 (Venous) 14 mmol/L (24-29); pCO2 (Venous) 30 mmHg (41-51); pH (Venous) 7.31 (7.31-7.41); pO2 (Venous) 42 mmHg
[2023-05-16 08:49] LABS: Abs Immature Grans 0.07 10^3/uL (0.0-0.06); Absolute Basophil Count 0.02 10^3/uL (0.0-0.2); Absolute Eosinophil Count 0.02 10^3/uL (0.0-0.7); Absolute Lymphocyte Count 1.76 10^3/uL (1.2-3.4); Basophils % 0.2; Eosinophils % 0.2; HCT 36.1 % (36.0-46.0); HGB 12.9 g/dL (11.2-15.7); Immature Grans % 0.6; Lymphocytes % 15.2; MCH 28.9 pg (27.0-33.0); MCHC 35.7 % (32.0-36.0); MCV 81 fL (80-95); MPV 8.6 fL (8.0-11.0); Monocytes % 7.1; Neutrophils % 76.7; Platelet Count 188 10^3/uL (130-400); RBC 4.47 10^6/uL (3.93-5.22); RDW 13.3 % (11.7-14.6); RDW-SD 38.8 fL; WBC 11.61 10^3/uL (4.4-10.8)
[2023-05-16 08:51] LABS: Absolute Monocyte Count 0.82 10^3/uL (0.1-0.8)
--- NOTE | 2023-05-16 09:16 | CMPROGNOTE_ITS ---
Date of service: 05/16/23 Time of Service: 09:16 Care Management Progress Note Progress Note Text Progress Note Text: S/O: Shena was lying in bed when CM met with her. She stated that she is feeling much better today. Per MD, she was transferred to [facility] level of care today, and was converted to basal bolus insulin. She is no longer receiving telemetry or IV fluids, and she may be ready for discharge in 24 hours, if she continues to improve. CM sent a referral to [facility], who has not yet reached out to Shena regarding her insurance needs. CM will continue to follow. A: Shena is a 42 year old female admitted to [facility] on 05/15/23 for DKA, type 2 diabetes. P: Anticipate Deborah will be discharged home with no new services. She will follow up with the provider senior consulting manager today, her day of admission, and establish with that practice if she chooses. CM sent a referral to [facility] for financial assistance and insurance. CM will follow and assess for ongoing discharge concerns.
[2023-05-16 09:41] LABS: Lab Add On Test DONE
--- NOTE | 2023-05-16 09:51 | W.PM.PROGNOT ---
Date of Service Date of service: 05/16/23 Time of Service: 09:51 Assessment and Plan Assessment and plan (1) DKA (diabetic ketoacidosis): Status: Resolved Assessment and plan: resolved. AG has closed, and acidosis has resolved. I will advance her diet, dc her iv fluids, meeks and femoral line and transfer to med/surg. dc telemetry. phosphorus is depleted, I have ordered phosphorus supplement and will monitor repeat labs. CM to meet w/ patient to arrange application for [place] Medicaid, assign PCP and assiste w/ medications. Patient should be able to get at least generic Humulin N and R. As far as her Lantus dose, 60 units is a large dose and while this may have been her dose in the past, she has not been on insulin in several months. Her long acting dose may need adjusted. I have ordered insulin resistant sliding scale along w/ CHO coverage. I will check her lipid profile and her glycohemoglobin A1c (2) HTN (hypertension): Status: Chronic Assessment and plan: losartan was reordered. monitor and adjust accordingly (3) Hypophosphatemia: Status: Acute Assessment and plan: replace and monitor Subjective Subjective Interval history since last seen: Patient is feeling much better. Her AG has closed and her acidosisi has resolved. Glucose now running 120's to 130's. Insulin drip down to 4 units/hr. Patient was given Lantus [address] Herrera's direction. I told the patient that we will convert her to basal/bolus insulin and advance her diet and remove her femoral IV and transfer to med/surg today. Exam Narrative Exam Narrative: Alert and oriented x4 HEENT: Atraumatic normocephalic, pupils equally round reactive to light and accommodation, extraocular motion intact, TMs intact, nares moist and patent without exudate or bleeding, oropharynx noninjected without exudate, teeth in fair repair Neck: Supple, nontender, without thyromegaly or lymphadenopathy or JVD. Normal carotid pulses Lungs: Clear to auscultation and percussion Heart: Regular rate and rhythm without murmur rub or gallop. Normal apical impulse Abdomen: Nondistended, normal bowel sounds, nontender to palpation or percussion, no organomegaly, no bruits, no palpable masses Extremities: Normal range of motion with normal strength. No peripheral cyanosis or edema. Normal pulses . Objective Last Vital Signs Temp 37.3 C 05/16/23 08:50 Pulse 103 H 05/16/23 08:50 Resp 12 05/16/23 04:00 BP 157/89 H 05/16/23 08:06 Pulse Ox 100 05/16/23 04:00 Laboratory Results - last 24 hr 05/15/23 05/15/23 05/15/23 08:35 10:00 10:00 WBC RBC Hgb Hct MCV MCH MCHC RDW Plt Count MPV Immature Gran % Neutrophils % Lymphocytes % Monocytes % Eosinophils % Basophils % Nucleated RBC % Absolute Neutrophils Absolute Lymphocytes Absolute Monocytes Absolute Eosinophils Absolute Basophils VBG pH VBG pCO2 VBG pO2 VBG HCO3 VBG Total CO2 VBG O2 Saturation VBG Base Excess Sodium Cancelled 141 Potassium Cancelled 3.3 L Chloride Cancelled 112 H Carbon Dioxide Cancelled 6.7 L Anion Gap Cancelled 22.3 H BUN Cancelled 17 Creatinine Cancelled 0.8 Est GFR (CKD-EPI 2020) Cancelled 93.12 Glucose Cancelled 262 H Calcium Cancelled 8.0 L Phosphorus Magnesium Total Bilirubin AST ALT Alkaline Phosphatase Total Protein Albumin Procalcitonin < 0.1 Add-On Test Request 05/15/23 05/15/23 05/15/23 11:26 12:00 12:09 WBC RBC Hgb Hct MCV MCH MCHC RDW Plt Count MPV Immature Gran % Neutrophils % Lymphocytes % Monocytes % Eosinophils % Basophils % Nucleated RBC % Absolute Neutrophils Absolute Lymphocytes Absolute Monocytes Absolute Eosinophils Absolute Basophils VBG pH Cancelled 7.10 L* VBG pCO2 Cancelled 18 L* VBG pO2 Cancelled 38 VBG HCO3 Cancelled 6 L VBG Total CO2 Cancelled 5 L VBG O2 Saturation Cancelled 79 VBG Base Excess Cancelled -24 L Sodium Cancelled Potassium Cancelled Chloride Cancelled Carbon Dioxide Cancelled Anion Gap Cancelled BUN Cancelled Creatinine Cancelled Est GFR (CKD-EPI 2020) Cancelled Glucose Cancelled Calcium Cancelled Phosphorus Magnesium Total Bilirubin AST ALT Alkaline Phosphatase Total Protein Albumin Procalcitonin Add-On Test Request 05/15/23 05/15/23 05/15/23 12:09 14:00 14:00 WBC RBC Hgb Hct MCV MCH MCHC RDW Plt Count MPV Immature Gran % Neutrophils % Lymphocytes % Monocytes % Eosinophils % Basophils % Nucleated RBC % Absolute Neutrophils Absolute Lymphocytes Absolute Monocytes Absolute Eosinophils Absolute Basophils VBG pH Cancelled VBG pCO2 Cancelled VBG pO2 Cancelled VBG HCO3 Cancelled VBG Total CO2 Cancelled VBG O2 Saturation Cancelled VBG Base Excess Cancelled Sodium 142 Cancelled Potassium 3.6 Cancelled Chloride 114 H Cancelled Carbon Dioxide 6.1 L Cancelled Anion Gap 21.9 H Cancelled BUN 17 Cancelled Creatinine 0.7 Cancelled Est GFR (CKD-EPI 2020) 109.30 Cancelled Glucose 228 H Cancelled Calcium 7.7 L Cancelled Phosphorus Magnesium Total Bilirubin AST ALT Alkaline Phosphatase Total Protein Albumin Procalcitonin Add-On Test Request 05/15/23 05/15/23 05/15/23 14:30 16:00 16:00 WBC RBC Hgb Hct MCV MCH MCHC RDW Plt Count MPV Immature Gran % Neutrophils % Lymphocytes % Monocytes % Eosinophils % Basophils % Nucleated RBC % Absolute Neutrophils Absolute Lymphocytes Absolute Monocytes Absolute Eosinophils Absolute Basophils VBG pH Cancelled VBG pCO2 Cancelled VBG pO2 Cancelled VBG HCO3 Cancelled VBG Total CO2 Cancelled VBG O2 Saturation Cancelled VBG Base Excess Cancelled Sodium 139 Cancelled Potassium 3.4 L Cancelled Chloride 112 H Cancelled Carbon Dioxide 10.8 L Cancelled Anion Gap 16.2 H Cancelled BUN 14 Cancelled Creatinine 0.7 Cancelled Est GFR (CKD-EPI 2020) 109.30 Cancelled Glucose 228 H Cancelled Calcium 7.8 L Cancelled Phosphorus Magnesium Total Bilirubin AST ALT Alkaline Phosphatase Total Protein Albumin Procalcitonin Add-On Test Request 05/15/23 05/15/23 05/15/23 16:29 16:29 18:00 WBC RBC Hgb Hct MCV MCH MCHC RDW Plt Count MPV Immature Gran % Neutrophils % Lymphocytes % Monocytes % Eosinophils % Basophils % Nucleated RBC % Absolute Neutrophils Absolute Lymphocytes Absolute Monocytes Absolute Eosinophils Absolute Basophils VBG pH 7.23 L VBG pCO2 25 L VBG pO2 50 VBG HCO3 10 L VBG Total CO2 10 L VBG O2 Saturation 92 VBG Base Excess -17 L Sodium 142 Cancelled Potassium 3.3 L Cancelled Chloride 115 H Cancelled Carbon Dioxide 11.5 L Cancelled Anion Gap 15.5 H Cancelled BUN 12 Cancelled Creatinine 0.7 Cancelled Est GFR (CKD-EPI 2020) 109.30 Cancelled Glucose 215 H Cancelled Calcium 8.0 L Cancelled Phosphorus Magnesium Total Bilirubin AST ALT Alkaline Phosphatase Total Protein Albumin Procalcitonin Add-On Test Request 05/15/23 05/15/23 05/15/23 18:00 18:00 18:50 WBC RBC Hgb Hct MCV MCH MCHC RDW Plt Count MPV Immature Gran % Neutrophils % Lymphocytes % Monocytes % Eosinophils % Basophils % Nucleated RBC % Absolute Neutrophils Absolute Lymphocytes Absolute Monocytes Absolute Eosinophils Absolute Basophils VBG pH Cancelled VBG pCO2 Cancelled VBG pO2 Cancelled VBG HCO3 Cancelled VBG Total CO2 Cancelled VBG O2 Saturation Cancelled VBG Base Excess Cancelled Sodium 141 Potassium 3.2 L Chloride 116 H Carbon Dioxide 13.6 L Anion Gap 11.4 H BUN 10 Creatinine 0.7 Est GFR (CKD-EPI 2020) 109.30 Glucose 232 H Calcium 8.0 L Phosphorus Magnesium Total Bilirubin AST ALT Alkaline Phosphatase Total Protein Albumin Procalcitonin Add-On Test Request TNP 05/15/23 05/15/23 05/15/23 19:50 19:50 19:50 WBC RBC Hgb Hct MCV MCH MCHC RDW Plt Count MPV Immature Gran % Neutrophils % Lymphocytes % Monocytes % Eosinophils % Basophils % Nucleated RBC % Absolute Neutrophils Absolute Lymphocytes Absolute Monocytes Absolute Eosinophils Absolute Basophils VBG pH 7.28 L VBG pCO2 26 L VBG pO2 60 VBG HCO3 12 L VBG Total CO2 11 L VBG O2 Saturation 95 VBG Base Excess -14 L Sodium 142 Potassium 3.2 L Chloride 117 H Carbon Dioxide 15.0 L Anion Gap 10.0 BUN 10 Creatinine 0.7 Est GFR (CKD-EPI 2020) 109.30 Glucose 210 H Calcium 8.2 L Phosphorus Magnesium 1.4 L Total Bilirubin 0.3 AST 9 L ALT 13 L Alkaline Phosphatase 74 Total Protein 5.9 L Albumin 3.2 L Procalcitonin Add-On Test Request 05/15/23 05/15/23 05/15/23 20:00 20:00 22:00 WBC RBC Hgb Hct MCV MCH MCHC RDW Plt Count MPV Immature Gran % Neutrophils % Lymphocytes % Monocytes % Eosinophils % Basophils % Nucleated RBC % Absolute Neutrophils Absolute Lymphocytes Absolute Monocytes Absolute Eosinophils Absolute Basophils VBG pH Cancelled VBG pCO2 Cancelled VBG pO2 Cancelled VBG HCO3 Cancelled VBG Total CO2 Cancelled VBG O2 Saturation Cancelled VBG Base Excess Cancelled Sodium Cancelled Cancelled Potassium Cancelled Cancelled Chloride Cancelled Cancelled Carbon Dioxide Cancelled Cancelled Anion Gap Cancelled Cancelled BUN Cancelled Cancelled Creatinine Cancelled Cancelled Est GFR (CKD-EPI 2020) Cancelled Cancelled Glucose Cancelled Cancelled Calcium Cancelled Cancelled Phosphorus Magnesium Total Bilirubin AST ALT Alkaline Phosphatase Total Protein Albumin Procalcitonin Add-On Test Request 05/15/23 05/15/23 05/15/23 22:00 22:05 22:05 WBC RBC Hgb Hct MCV MCH MCHC RDW Plt Count MPV Immature Gran % Neutrophils % Lymphocytes % Monocytes % Eosinophils % Basophils % Nucleated RBC % Absolute Neutrophils Absolute Lymphocytes Absolute Monocytes Absolute Eosinophils Absolute Basophils VBG pH Cancelled 7.27 L VBG pCO2 Cancelled 32 L VBG pO2 Cancelled 35 VBG HCO3 Cancelled 15 L VBG Total CO2 Cancelled 14 L VBG O2 Saturation Cancelled 80 VBG Base Excess Cancelled -12 L Sodium 143 Potassium 3.3 L Chloride 117 H Carbon Dioxide 15.0 L Anion Gap 11.0 BUN 10 Creatinine 0.7 Est GFR (CKD-EPI 2020) 109.30 Glucose 137 H Calcium 8.6 Phosphorus Magnesium Total Bilirubin AST ALT Alkaline Phosphatase Total Protein Albumin Procalcitonin Add-On Test Request 05/15/23 05/15/23 05/16/23 22:05 Unknown 00:10 WBC RBC Hgb Hct MCV MCH MCHC RDW Plt Count MPV Immature Gran % Neutrophils % Lymphocytes % Monocytes % Eosinophils % Basophils % Nucleated RBC % Absolute Neutrophils Absolute Lymphocytes Absolute Monocytes Absolute Eosinophils Absolute Basophils VBG pH Cancelled VBG pCO2 Cancelled VBG pO2 Cancelled VBG HCO3 Cancelled VBG Total CO2 Cancelled VBG O2 Saturation Cancelled VBG Base Excess Cancelled Sodium 141 Potassium 3.1 L Chloride 116 H Carbon Dioxide 16.4 L Anion Gap 8.6 BUN 9 Creatinine 0.5 L Est GFR (CKD-EPI 2020) 118.53 Glucose 70 L Calcium 8.3 L Phosphorus < 2.0 L Magnesium Total Bilirubin AST ALT Alkaline Phosphatase Total Protein Albumin Procalcitonin Add-On Test Request 05/16/23 05/16/23 05/16/23 00:10 01:50 01:50 WBC RBC Hgb Hct MCV MCH MCHC RDW Plt Count MPV Immature Gran % Neutrophils % Lymphocytes % Monocytes % Eosinophils % Basophils % Nucleated RBC % Absolute Neutrophils Absolute Lymphocytes Absolute Monocytes Absolute Eosinophils Absolute Basophils VBG pH 7.29 L 7.28 L VBG pCO2 31 L 29 L VBG pO2 73 78 VBG HCO3 15 L 14 L VBG Total CO2 14 L 13 L VBG O2 Saturation 98 98 VBG Base Excess -12 L -13 L Sodium 142 Potassium 2.8 L* Chloride 117 H Carbon Dioxide 14.6 L Anion Gap 10.4 BUN 8 Creatinine 0.4 L Est GFR (CKD-EPI 2020) 125.08 Glucose 156 H Calcium 7.2 L Phosphorus Magnesium Total Bilirubin AST ALT Alkaline Phosphatase Total Protein Albumin Procalcitonin Add-On Test Request 05/16/23 05/16/23 05/16/23 03:55 03:55 06:00 WBC RBC Hgb Hct MCV MCH MCHC RDW Plt Count MPV Immature Gran % Neutrophils % Lymphocytes % Monocytes % Eosinophils % Basophils % Nucleated RBC % Absolute Neutrophils Absolute Lymphocytes Absolute Monocytes Absolute Eosinophils Absolute Basophils VBG pH 7.28 L VBG pCO2 31 L VBG pO2 75 VBG HCO3 14 L VBG Total CO2 13 L VBG O2 Saturation 98 VBG Base Excess -13 L Sodium 140 140 Potassium 4.4 D 4.3 Chloride 115 H 115 H Carbon Dioxide 16.0 L 17.4 L Anion Gap 9.0 7.6 BUN 8 6 L Creatinine 0.4 L 0.4 L Est GFR (CKD-EPI 2020) 125.08 125.08 Glucose 224 H 222 H Calcium 7.7 L 7.7 L Phosphorus Magnesium Total Bilirubin AST ALT Alkaline Phosphatase Total Protein Albumin Procalcitonin Add-On Test Request 05/16/23 05/16/23 05/16/23 06:00 06:00 08:39 WBC RBC Hgb Hct MCV MCH MCHC RDW Plt Count MPV Immature Gran % Neutrophils % Lymphocytes % Monocytes % Eosinophils % Basophils % Nucleated RBC % Absolute Neutrophils Absolute Lymphocytes Absolute Monocytes Absolute Eosinophils Absolute Basophils VBG pH 7.28 L 7.31 VBG pCO2 33 L 30 L VBG pO2 51 42 VBG HCO3 16 L 15 L VBG Total CO2 15 L 14 L VBG O2 Saturation 92 88 VBG Base Excess -11 L -11 L Sodium Potassium Chloride Carbon Dioxide Anion Gap BUN Creatinine Est GFR (CKD-EPI 2020) Glucose Calcium Phosphorus < 2.0 L Magnesium 2.0 Total Bilirubin AST ALT Alkaline Phosphatase Total Protein Albumin Procalcitonin Add-On Test Request 05/16/23 05/16/23 08:39 08:39 WBC 11.61 H RBC 4.47 Hgb 12.9 D Hct 36.1 MCV 81 D MCH 28.9 MCHC 35.7 D RDW 13.3 Plt Count 188 D MPV 8.6 Immature Gran % 0.6 Neutrophils % 76.7 Lymphocytes % 15.2 Monocytes % 7.1 Eosinophils % 0.2 Basophils % 0.2 Nucleated RBC % 0.0 Absolute Neutrophils 8.90 H Absolute Lymphocytes 1.76 Absolute Monocytes 0.82 H Absolute Eosinophils 0.02 Absolute Basophils 0.02 VBG pH VBG pCO2 VBG pO2 VBG HCO3 VBG Total CO2 VBG O2 Saturation VBG Base Excess Sodium Potassium Chloride Carbon Dioxide Anion Gap BUN Creatinine Est GFR (CKD-EPI 2020) Glucose Calcium Phosphorus Magnesium Total Bilirubin AST ALT Alkaline Phosphatase Total Protein Albumin Procalcitonin Add-On Test Request DONE Time Spent with Patient Time Spent with Patient: 35-49 minutes Time was spent: preparing to see the patient(eg.review tests), ordering medications,tests, procedures, referring, communicating with other health small animal caretaker, indepentently interpreting results, counseling the patient and care coordination
[2023-05-16] MEDS: Insulin Aspart 300 UNITS/3 ML PEN SC ×3 (10:27→21:37)
[2023-05-16 22:50] LABS: Bilirubin Small (Negative); Blood Large (Negative); Clarity Clear (Clear); Glucose 250 mg/dL (Negative); Ketones 80 mg/dL (Negative); Leukocyte Esterase Negative (Negative); Nitrite Negative (Negative); Specific Gravity >= 1.030 (1.005-1.025); Urobilinogen 0.2 mg/dL (Up to 0.2)
[2023-05-16 23:07] LABS: Bacteria Negative HPF (Negative); Epithelial Cells Many HPF (Negative); Mucus Moderate (Negative)
[2023-05-16 23:08] LABS: C & S Indicated? No/Sq. Contamination; Crystals Other HPF (Negative)
[2023-05-17] MEDS: Insulin Aspart 300 UNITS/3 ML PEN SC ×2 (01:00→08:38)
[2023-05-17 07:02] LABS: Abs Immature Grans 0.03 10^3/uL (0.0-0.06); Absolute Basophil Count 0.03 10^3/uL (0.0-0.2); Absolute Eosinophil Count 0.05 10^3/uL (0.0-0.7); Absolute Lymphocyte Count 2.83 10^3/uL (1.2-3.4); Absolute Monocyte Count 0.67 10^3/uL (0.1-0.8); Absolute Neutrophil Count 4.17 10^3/uL (1.2-6.7); Basophils % 0.4; Eosinophils % 0.6; HCT 33.8 % (36.0-46.0); HGB 11.8 g/dL (11.2-15.7); Immature Grans % 0.4; Lymphocytes % 36.4; MCH 28.2 pg (27.0-33.0); MCHC 34.9 % (32.0-36.0); MCV 81 fL (80-95); MPV 9.3 fL (8.0-11.0); Monocytes % 8.6; Neutrophils % 53.6; Platelet Count 159 10^3/uL (130-400); RBC 4.19 10^6/uL (3.93-5.22); RDW 13.5 % (11.7-14.6); RDW-SD 39.3 fL; WBC 7.78 10^3/uL (4.4-10.8)
[2023-05-17 07:13] VITALS: BP 147/78; PULSE 92; RESP 18; TEMP 36.7; O2SAT 96
[2023-05-17 07:26] LABS: ALT 14 U/L (14-59); AST 16 U/L (15-37); Albumin 2.6 g/dL (3.4-5.0); Alkaline Phosphatase 73 U/L (46-116); Anion Gap 8.2 mmol/L (3-11); BUN 5 mg/dL (7-18); Bilirubin, Total 0.5 mg/dL (0.2-1.0); CO2 25.8 mmol/L (21.0-32.0); CREATININE 0.3 mg/dL (0.55-1.02); Calcium 7.7 mg/dL (8.5-10.1); Calculated LDL 105 mg/dL (<100); Chloride 110 mmol/L (98-107); Cholesterol 160 mg/dL (<200); Estimated GFR 134.06 (mL/min/1.73m2); Glucose 118 mg/dL (74-106); HDL Cholesterol 35 mg/dL (40-60); Magnesium 1.7 mg/dL (1.8-2.4); Sodium 144 mmol/L (136-145); Total Protein 5.2 g/dL (6.4-8.2); Triglyceride 101 mg/dL (<150)
[2023-05-17 07:30] LABS: Potassium 2.6 mmol/L (3.5-5.1)
[2023-05-17 07:42] LABS: PHOSPHORUS 2.8 mg/dL (2.6-4.7)
[2023-05-17] MEDS: Potassium Chloride 10 MEQ CAPCR 40 MEQ PO (08:29)
[2023-05-17] MEDS: Normal Saline Flush 10 ML SYR IVP (08:31)
[2023-05-17] MEDS: POTASSIUM CHLORIDE 20 MEQ/100 ML BAG 50 MEQ IVPB ×2 (08:31→10:20)
[2023-05-17] MEDS: Gabapentin 100 MG CAP 300 MG PO (08:31)
[2023-05-17] MEDS: Atorvastatin 40 MG TAB PO (08:32)
[2023-05-17] MEDS: Losartan 25 MG TAB PO (08:32)
[2023-05-17] MEDS: Normal Saline 500 ML 50 ML IV (08:33)
[2023-05-17] MEDS: Insulin Glargine 300 UNITS/3 ML PEN 60 UNITS SC (08:34)
--- NOTE | 2023-05-17 14:55 | DSE_ITS ---
Date of service: 05/17/23 Time of Service: 15:15 DS: Diagnosis Discharge Diagnosis (1) DKA (diabetic ketoacidosis): Status: Resolved Asessment and Plan: AG has closed, and acidosis has resolved. A1c 13. Placed on basal / bolus insulin. She had been w/o insurance and consequently w/o insulin for several months. Medicaid application submitted and expected to be active this coming Saturday or Saturday. She will be sent home with enough insulin for 3 days. (2) HTN (hypertension): Status: Chronic Asessment and Plan: Cont losartan. Losartan was administered at a dose of 25mg daily while hospitalized. She will resume her home 50mg dosage. (3) Hypophosphatemia: Status: Acute Asessment and Plan: Repleted Discharge Plan Disposition Patient Disposition: Home Condition: Good Condition: Improving Discharge Details Reason For Visit: DKA,Type 2 Diabetes Mellitus Admit Date/Time: 05/15/23 04:59 Admit Provider: Gael Jacobo Attending Provider: Gael Jacobo Primary Care Provider: Mary Kate Trejo [facility] Course Hospital Course: This is a 42-year-old female patient has had nausea and vomiting for the last 3 to 4 days with diabetes mellitus treated with insulin having diabetes since her second child was born.? She is been working 2 jobs with fatigue began to have illness over this last weekend.? She was very thirsty and she had decreased her urinary output with body aches and abdominal discomfort similar to when she had previous DKA.? She reported to the ED for evaluation was found to be in DKA and initiated on IV fluid resuscitation with IV insulin infusion and lab evaluation.? She was ketoacidotic with pH just below 7 and health education coordinator small breathing.? With IV hydration and insulin she was feeling better.? She did have acidosis with elevated anion gap which we followed closely as she is treated with IV insulin infusion and adjustment of IV fluids in the ICU.? Her other medical problems appear to be overall stable.? She was fully consciousness without coma.? She has had previous episodes of DKA requiring hospitalization.? She is a full code. See Diagnosis PCP follow up in 1-2 weeks. Home Meds and New Rx's Prescriptions: New insulin aspart U-100 100 unit/mL (3 mL) Insulin Pen See Rx Instructions .ROUTE .COMPLEX Qty: 15 1RF Rx Instructions: 2 units per 10 grams of carbohydrates insulin glargine [Lantus Solostar U-100 Insulin] 100 unit/mL (3 mL) Insulin Pen 60 unit subcut DAILY Qty: 15 1RF insulin aspart (niacinamide) 100 unit/mL (3 mL) cartridge See Rx Instructions .ROUTE .COMPLEX Qty: 15 1RF Rx Instructions: 2 units per each 10 grams of carbohydrates insulin glargine [Lantus Solostar U-100 Insulin] 100 unit/mL (3 mL) insulin pen 60 unit subcut QPM Qty: 15 1RF Continued atorvastatin 40 MG tablet 40 mg PO DAILY losartan 50 mg tablet 50 mg PO DAILY Patient Comments: TAKE 1 TABLET BY MOUTH ONCE DAILY amitriptyline 50 mg tablet 50 mg PO HS Patient Comments: TAKE 1 TABLET BY MOUTH EVERY DAY AT BEDTIME glimepiride 4 mg tablet 4 mg PO BID Patient Comments: TAKE 1 TABLET BY MOUTH TWICE DAILY gabapentin 300 mg capsule 900 mg PO HS Patient Comments: TAKE 2 CAPSULES BY MOUTH TWICE DAILY AND 3 AT BEDTIME FOR A TOTAL OF 2100MG A DAY. Discontinued insulin aspart U-100 [Novolog FlexPen U-100 Insulin] 300 UNITS/3 ML insulin pen 1 applic Sub-Q 0800,1200,1700 Qty: 7 Rx Instructions: FSBS 140-180 6 units, 181-220 8 units, 221- 260 10 units, 261 -300 12 units, 301-340 14 units, 341-380 16 units insulin glargine [Lantus Solostar U-100 Insulin] 300 UNITS/3 ML insulin pen 60 units Sub-Q HS Qty: 7 gabapentin 300 mg capsule 600 mg PO BID@0800,1400 Patient Comments: TAKE 2 CAPSULES BY MOUTH TWICE DAILY AND 3 AT BEDTIME FOR A TOTAL OF 2100MG A DAY. Discharge Instructions Activity:: Activity as Tolerated Equipment/Supplies:: No Equipment Needed Diet:: Resume home diabetic diet DS: Summary Time Spent with Patient providing and/or coordinating discharge services: Greater than 30 minutes Status at Discharge Functional status at discharge: independent ambulation Overall status at discharge: patient is progressing back to baseline Mental Status: mental status grossly normal Speech and Movement: speech and movement normal Mood: congruent mood Affect: normal affect Exam Narrative Exam Narrative: Alert and oriented x4 HEENT: Atraumatic normocephalic, pupils equally round reactive to light and accommodation, sclera clear. Neck: Supple, FROM Lungs: Clear to auscultation and percussion Heart: Regular rate and rhythm without murmur Abdomen: Nondistended, normal bowel sounds, nontender to palpation Extremities:No edema or calf tenderness . Psych Mental Status: mental status grossly normal Speech and Movement: speech and movement normal Mood: congruent mood Affect: normal affect DS: Data Vitals/I&O Vitals and I&O: Vital Signs Temperature 36.7 C 05/17/23 07:13 Temperature Source Tympanic 05/17/23 07:13 Pulse 92 H 05/17/23 07:13 Pulse Rhythm Regular 05/17/23 09:30 Pulse 106 H 05/16/23 09:58 Respiratory Rate 18 05/17/23 07:13 Respiratory Effort Normal 05/17/23 09:30 Respiratory Depth Normal 05/17/23 09:30 Respiratory Pattern Normal 05/17/23 09:30 Blood Pressure 147/78 H 05/17/23 07:13 Blood Pressure Mean 80 05/16/23 13:51 Blood Pressure Position Supine 05/16/23 08:50 Pulse Oximetry 96 05/17/23 07:13 Oxygen Delivery Method Room Air 05/17/23 07:13 Oxygen Flow Rate 0 05/17/23 07:13 Pain Level 0 05/17/23 07:13 Comment rn notified of bp 05/17/23 07:13 Intake & Output 05/16/23 05/17/23 05/17/23 23:59 11:59 23:59 Intake Total 480 / 4250.367 100.833 / 100.833 Balance 480 / 3500.367 100.833 / 100.833 Weight 91.172 kg Intake: IV 100.833 / 100.833 Oral 480 / 1960 Other: Comment per patient she voided in toilet Pt voiding ad thai and independently. Voiding Methods Toilet Data Completed and Pending Labs on day of discharge: Labs from last 24 hours 05/17/23 05/17/23 05/17/23 14:00 05:30 05:30 WBC 7.78 RBC 4.19 Hgb 11.8 Hct 33.8 L MCV 81 MCH 28.2 MCHC 34.9 RDW 13.5 Plt Count 159 MPV 9.3 Immature Gran % 0.4 Neutrophils % 53.6 Lymphocytes % 36.4 Monocytes % 8.6 Eosinophils % 0.6 Basophils % 0.4 Nucleated RBC % 0.0 Absolute Neutrophils 4.17 Absolute Lymphocytes 2.83 Absolute Monocytes 0.67 Absolute Eosinophils 0.05 Absolute Basophils 0.03 Sodium 144 Potassium Pending 2.6 L* D Chloride 110 H Carbon Dioxide 25.8 Anion Gap 8.2 BUN 5 L Creatinine 0.3 L Est GFR (CKD-EPI 2020) 134.06 Glucose 118 H Calcium 7.7 L Phosphorus 2.8 Magnesium 1.7 L Total Bilirubin 0.5 AST 16 ALT 14 Alkaline Phosphatase 73 Total Protein 5.2 L Albumin 2.6 L Triglycerides 101 Total Cholesterol 160 LDL Cholesterol, Calc 105 H HDL Cholesterol 35 L Urine Color Urine Clarity Urine pH Ur Specific [place] Urine Protein Urine Ketones Urine Blood Urine Nitrite Urine Bilirubin Urine Urobilinogen Ur Leukocyte Esterase Urine RBC Urine WBC Ur Epithelial Cells Urine Crystals Urine Bacteria Urine Mucus Ur Culture Indicated? Urine Glucose 05/16/23 05/16/23 22:30 08:39 WBC RBC Hgb Hct MCV MCH MCHC RDW Plt Count MPV Immature Gran % Neutrophils % Lymphocytes % Monocytes % Eosinophils % Basophils % Nucleated RBC % Absolute Neutrophils Absolute Lymphocytes Absolute Monocytes Absolute Eosinophils Absolute Basophils Sodium Cancelled Potassium Cancelled Chloride Cancelled Carbon Dioxide Cancelled Anion Gap Cancelled BUN Cancelled Creatinine Cancelled Est GFR (CKD-EPI 2020) Cancelled Glucose Cancelled Calcium Cancelled Phosphorus Magnesium Total Bilirubin AST ALT Alkaline Phosphatase Total Protein Albumin Triglycerides Total Cholesterol LDL Cholesterol, Calc HDL Cholesterol Urine Color Yellow Urine Clarity Clear Urine pH 6.0 Ur Specific [place] >= 1.030 H Urine Protein 30 H Urine Ketones 80 H Urine Blood Large H Urine Nitrite Negative Urine Bilirubin Small H Urine Urobilinogen 0.2 Ur Leukocyte Esterase Negative Urine RBC 10-20 H Urine WBC 10-20 H Ur Epithelial Cells Many Urine Crystals Other Urine Bacteria Negative Urine Mucus Moderate Ur Culture Indicated? No/Sq. Contamination Urine Glucose 250 H Preliminary micro results at discharge 05/15/23 08:35 Blood Culture - Preliminary Blood NO GROWTH 48 HOURS 05/15/23 19:41 Urine Culture - Preliminary Urine - Cath Ho Indwelling 05/15/23 16:29 Blood Culture - Preliminary Blood NO GROWTH 24 HOURS PFSH All Active Problems (Updated 05/16/23 @ 09:54 by Francis Linton MD) Tachycardia (Acute) Hypophosphatemia (Acute) Hypocalcemia (Acute) Leukocytosis (Acute) HTN (hypertension) (Chronic) Diabetic ketoacidosis (Acute 06/13/14) Insulin drip followed by basal boulus insulin dosing. E. coli UTI (Acute 06/13/14) Received 4 days of IV Deftriaxone. Not discharged on the with any antibiotics. FU urine nonspecific mixed gram positive growth. Hypokalemia (Acute 06/13/14) Type 2 diabetes mellitus (Chronic) Initially on insulin therapy and then oral Metformin, now back on insulin thereapy. Hyperlipidemia (Chronic) Started on Pravastatin this admission (06-13-2014) Morbid obesity with body mass index of 40.0-49.9 (Chronic) Family History Mother Diabetes Uterine cancer Father Diabetes Heart disease Sister Thyroid disorder Grandmother Colon cancer maternal Social History Smoking/Tobacco Use Status: Never Smoking risk assessment performed?: Yes Alcohol Intake: never Drug use: Never Housing: house Do you feel safe at home: Yes Do you feel safe in your relationship?: Yes Time Spent with Patient Time Spent with Patient: 45-69 minutes Time was spent: preparing to see the patient(eg.review tests), obtaining and/or reviewing separately otained hiistory, referring, communicating with other health career development specialist, indepentently interpreting results, counseling the patient and care coordination
--- NOTE | 2023-05-17 16:01 | PDOC.CMDIS ---
Date of service: 05/17/23 Time of Service: 16:01 LACE Index Scoring Tool Questions: Length of Stay (in days): 2 Was the patient admitted via the E.D.?: Yes Comorbidities: Diabetes w/o Complication E.D. Visits: 0 Answers: Total Score: 6 Risk of Readmission: Low Risk Care Management Discharge Plan Reason for Hospitalization: DKA Discharge Plan: Shena will return home today with no new services. CM connected Deborah with [employer] to assist with insurance coverage; likely RIN, which should be active early next week. Deborah stated that she has all of her diabetic supplies, but will need a new prescription for insulin. [facility] pharmacy will provide her with enough insulin to get her through the weekend, until her RIN is active. She was driven home via private vehicle by family. CM called [facility] to request a follow up appointment, as Barbara Baca was education department registrar when she arrived at the ED. She will follow up with her discharge plan of care. She is happy to be going home. Patient/Family Education Needs: Review discharge instructions and limitations, discussion of self care needs including ask me three.
[2023-05-17 16:58] LABS: Potassium 3.5 mmol/L (3.5-5.1)
== END 2023-05-17 16:27 | disposition home or self-care (01) | DRG 639 ==
LOC: ER 05:09 → ICU 07:27 → MS 05-16 18:19
PROVIDERS: Internal Medicine; Admitting Provider Family Medicine; Emergency Provider Student in an Organized Health Care Education/Training Program; Visit Provider Family Medicine
DX: E11.10 Type 2 diabetes mellitus with ketoacidosis without coma (principal); E87.6 Hypokalemia; E66.01 Morbid (severe) obesity due to excess calories; Z68.34 Body mass index [BMI] 34.0-34.9, adult; I10 Essential (primary) hypertension; D72.829 Elevated white blood cell count, unspecified; E78.5 Hyperlipidemia, unspecified; R11.2 Nausea with vomiting, unspecified; R53.1 Weakness; Z79.4 Long term (current) use of insulin; R00.0 Tachycardia, unspecified; T38.3X6A Underdosing of insulin and oral hypoglycemic [antidiabetic] drugs, initial encounter; E83.51 Hypocalcemia; E83.39 Other disorders of phosphorus metabolism; Z91.141 Patient's other noncompliance with medication regimen due to financial hardship
CPT/HCPCS: 36556; 36415; 36416; 36592; 80048; 80053; 80061; 82805; 82962; 83690; 84145; 87040; 93005; 96365; 96366; 99291; 81003; 81015; 83036; 83605; 83735; 84100; 84132; 84484; 84703; 85025; 87086; 93010; 99223; 99233; 99239; J2765; J3475; J3480; J3490

== ENCOUNTER 2023-05-23 13:08 | Outpatient (REF) | payer SELFPAY ==
[2023-05-23 16:30] LABS: ALT 18 U/L (14-59); AST 21 U/L (15-37); Albumin 3.1 g/dL (3.4-5.0); Alkaline Phosphatase 78 U/L (46-116); Anion Gap 10.8 mmol/L (3-11); BUN 12 mg/dL (7-18); Bilirubin, Total 0.3 mg/dL (0.2-1.0); CO2 25.2 mmol/L (21.0-32.0); CREATININE 0.3 mg/dL (0.55-1.02); Calcium 8.7 mg/dL (8.5-10.1); Chloride 103 mmol/L (98-107); Estimated GFR 134.06 (mL/min/1.73m2); Glucose 180 mg/dL (74-106); Potassium 4.2 mmol/L (3.5-5.1); Sodium 139 mmol/L (136-145); Total Protein 6.1 g/dL (6.4-8.2)
[2023-05-23 17:28] LABS: HCT 38.3 % (36.0-46.0); HGB 12.7 g/dL (11.2-15.7); MCH 28.1 pg (27.0-33.0); MCHC 33.2 % (32.0-36.0); MCV 85 fL (80-95); MPV 9.6 fL (8.0-11.0); Platelet Count 340 10^3/uL (130-400); RBC 4.52 10^6/uL (3.93-5.22); RDW 13.1 % (11.7-14.6); RDW-SD 40.4 fL; WBC 5.66 10^3/uL (4.4-10.8)
== END 2023-05-23 13:09 | disposition home or self-care (01) ==
LOC: NCHCN 13:08
PROVIDERS: Visit Provider Family Medicine
DX: E11.9 Type 2 diabetes mellitus without complications (principal); G62.9 Polyneuropathy, unspecified; E66.01 Morbid (severe) obesity due to excess calories
CPT/HCPCS: 80053; 85027

== ENCOUNTER 2023-11-07 16:01 | Outpatient (REF) | payer MEDICAID, SELFPAY ==
[2023-11-07 15:45] LABS: Abs Immature Grans 0.02 10^3/uL (0.0-0.06); Absolute Basophil Count 0.05 10^3/uL (0.0-0.2); Absolute Eosinophil Count 0.19 10^3/uL (0.0-0.7); Absolute Lymphocyte Count 3.12 10^3/uL (1.2-3.4); Absolute Monocyte Count 0.45 10^3/uL (0.1-0.8); Absolute Neutrophil Count 4.14 10^3/uL (1.2-6.7); Basophils % 0.6; Eosinophils % 2.4; HCT 43.5 % (36.0-46.0); HGB 14.9 g/dL (11.2-15.7); Immature Grans % 0.3; Lymphocytes % 39.1; MCH 28.5 pg (27.0-33.0); MCHC 34.3 % (32.0-36.0); MCV 83 fL (80-95); MPV 9.4 fL (8.0-11.0); Monocytes % 5.6; Platelet Count 272 10^3/uL (130-400); RBC 5.23 10^6/uL (3.93-5.22); RDW 13.2 % (11.7-14.6); WBC 7.97 10^3/uL (4.4-10.8)
[2023-11-07 16:38] LABS: ALT 36 U/L (14-59); AST 12 U/L (15-37); Alkaline Phosphatase 102 U/L (46-116); BUN 13 mg/dL (7-18); Bilirubin, Total 0.4 mg/dL (0.2-1.0); CREATININE 0.5 mg/dL (0.55-1.02); Calcium 9.2 mg/dL (8.5-10.1); Calculated LDL 110 mg/dL (<100); Chloride 104 mmol/L (98-107); Cholesterol 172 mg/dL (<200); Glucose 178 mg/dL (74-106); HDL Cholesterol 56 mg/dL (40-60); Potassium 4.3 mmol/L (3.5-5.1); Sodium 140 mmol/L (136-145); TSH (W/Ref FT4) 1.76 uIU/mL (0.36-3.74); Total Protein 7.1 g/dL (6.4-8.2); Triglyceride 30 mg/dL (<150)
[2023-11-07 17:27] LABS: Hemoglobin A1C 9.5 % (<5.7)
== END 2023-11-07 16:02 | disposition home or self-care (01) ==
LOC: NCHCN 16:01
PROVIDERS: Referring Provider Family Medicine; Visit Provider Family Medicine
DX: E11.9 Type 2 diabetes mellitus without complications (principal)
CPT/HCPCS: 80053; 80061; 83036; 84443; 85025

== ENCOUNTER 2023-11-19 09:21 | Emergency (ER) | payer BC, SELFPAY ==
[2023-11-19 09:30] VITALS: BP 136/103; PULSE 114; RESP 18; TEMP 36.4; O2SAT 97
--- NOTE | 2023-11-19 09:30 | ED.GENADUL_ITS ---
Discharge Plan Disposition Patient Disposition: Home Condition: Stable Discharge Details Clinical Impression: Poorly controlled type 2 diabetes mellitus Primary Care Provider: Charanjit Armendariz ED Provider: Zabrina Ochoa Home Meds and New Rx's Prescriptions: New metoclopramide HCl [Reglan] 5 mg tablet 5 mg PO QACHS PRNQty: 10 0RF Continued atorvastatin 40 MG tablet 40 mg PO DAILY Januvia 100 mg tablet 100 mg PO DAILY losartan 50 mg tablet 50 mg PO DAILY Patient Comments: TAKE 1 TABLET BY MOUTH ONCE DAILY amitriptyline 50 mg tablet 100 mg PO HS Patient Comments: TAKE 1 TABLET BY MOUTH EVERY DAY AT BEDTIME glimepiride 4 mg tablet 4 mg PO BID Patient Comments: TAKE 1 TABLET BY MOUTH TWICE DAILY gabapentin 300 mg capsule 900 mg PO HS Patient Comments: TAKE 2 CAPSULES BY MOUTH TWICE DAILY AND 3 AT BEDTIME FOR A TOTAL OF 2100MG A DAY. insulin aspart U-100 100 unit/mL (3 mL) Insulin Pen See Rx Instructions .ROUTE .COMPLEX Qty: 15 1RF Rx Instructions: 2 units per 10 grams of carbohydrates insulin aspart (niacinamide) 100 unit/mL (3 mL) cartridge See Rx Instructions .ROUTE .COMPLEX Qty: 15 1RF Rx Instructions: 2 units per each 10 grams of carbohydrates Changed insulin glargine [Lantus Solostar U-100 Insulin] 100 unit/mL (3 mL) insulin pen 70 unit subcut QPM Qty: 15 1RF No Action insulin glargine [Lantus Solostar U-100 Insulin] 100 unit/mL (3 mL) Insulin Pen 60 unit subcut DAILY Qty: 15 1RF Discharge Instructions Instructions: Diabetic Hyperglycemia (ED), Diabetes and Exercise (ED) Referrals: Charanjit Armendariz MD [Primary Care Provider] - [facility] General Mode of arrival: ambulatory . Date/Time Provider Initiated Documentation: 11/19/23 09:27 . Limitations to Documentation: no limitations . Information obtained by: patient . HPI Narrative: patient referred from pcp office for concern for DKA, history of poorly controlled diabetes with last A1C 9.5 earlier this month. denies any recent illness. reporting nausea and abdominal discomfort, states consistent with prior episodes of DKA. occasional dry cough but no fever, sputum or sob. no rashes or lesions. denies urinary frequency or urgency. no recent sick contacts. no diarrhea or constipation Related Data Home Medications Medication Instructions Recorded Confirmed atorvastatin 40 mg tablet 40 mg PO DAILY 07/27/16 11/19/23 amitriptyline 50 mg tablet 100 mg PO HS 05/16/23 11/19/23 gabapentin 300 mg capsule 900 mg PO HS 05/16/23 11/19/23 glimepiride 4 mg tablet 4 mg PO BID 05/16/23 11/19/23 losartan 50 mg tablet 50 mg PO DAILY 05/16/23 11/19/23 insulin aspart See Rx Instructions .Route 05/17/23 11/19/23 (niacinamide)(U-100) 100 unit/mL .COMPLEX #15 mL (3 mL) subcu cartridge insulin aspart U-100 100 unit/mL See Rx Instructions .Route 05/17/23 11/19/23 (3 mL) subcutaneous pen .COMPLEX #15 mL insulin glargine 100 unit/mL (3 60 unit (0.6 mL) subcut DAILY #15 05/17/23 11/19/23 mL) subcutaneous pen (Lantus mL Solostar U-100 Insulin) insulin glargine 100 unit/mL (3 70 unit (0.7 mL) subcut QPM #15 mL 11/19/23 11/19/23 mL) subcutaneous pen (Lantus Solostar U-100 Insulin) metoclopramide HCl 5 mg tablet 5 mg PO QACHS PRN #10 tabs 11/19/23 (Reglan) sitagliptin phosphate 100 mg 100 mg PO DAILY 11/19/23 11/19/23 tablet (Januvia) Previous Rx's Medication Instructions Recorded insulin aspart See Rx Instructions .Route 05/17/23 (niacinamide)(U-100) 100 unit/mL .COMPLEX #15 mL (3 mL) subcu cartridge insulin aspart U-100 100 unit/mL See Rx Instructions .Route 05/17/23 (3 mL) subcutaneous pen .COMPLEX #15 mL insulin glargine 100 unit/mL (3 60 unit (0.6 mL) subcut DAILY #15 05/17/23 mL) subcutaneous pen (Lantus mL Solostar U-100 Insulin) insulin glargine 100 unit/mL (3 70 unit (0.7 mL) subcut QPM #15 mL 11/19/23 mL) subcutaneous pen (Lantus Solostar U-100 Insulin) metoclopramide HCl 5 mg tablet 5 mg PO QACHS PRN #10 tabs 11/19/23 (Reglan) Allergies Allergy/AdvReac Type Severity Reaction Status Date / Time Penicillins Allergy Hives Verified 11/19/23 09:37 codeine AdvReac Nausea Verified 11/19/23 09:37 General CAPRICE: 2 Review of Systems All systems reviewed & are unremarkable except as noted in HPI and below Exam Const General: cooperative, comfortable, no acute distress and ill appearing (older than stated age) chronically Nutritional Appearance: obese Orientation: alert, awake and oriented x3 HENMT Head: normal to inspection, normocephalic and atraumatic Face and sinus: normal facial exam Mouth: oral mucosae normal Neck Neck: normal visual inspection and full ROM Chest Chest: normal inspection of the chest Resp Effort & Inspection: normal respiratory effort and able to speak in complete sentences Auscultation: clear to auscultation bilaterally Cardio Rate: tachycardic Rhythm: regular rhythm GI Inspection: normal to inspection and obesity Palpation: soft Skin General skin exam: no rashes or lesions noted Neuro General: patient alert, patient awake, patient oriented x3 and no focal motor deficits Extrem General: normal to inspection, full ROM and no pedal edema Medical Decision Making patient with type 2 DM, poorly controlled, presents for evaluation of hyperglycemia with concern for DKA. IV will be established, electrolytes and kidney function in addition to infection source ordered. no obvious source, and I suspect poor compliance with diabetes management (although she states she has been taking all meds as prescribed) but UA and CXR will be ordered. will give 1 liter of NS bolus. patient to remain hemodynamically monitored while awaiting labs and xray. second liter of NS provided. not in DKA. blood sugar improved to 250's and heart rate from 110's to 90's after 2nd liter, given 6 units of reg insulin. no source or suspicion for an infection identified. discussed increasing basal insulin and closely monitoring blood sugar at home for other adjustments as needed. patient still reporting nausea, medicated with compazine 10 mg IVP. will prescribe reglan 10 mg tabs to use for nausea for home use, consider gastroparesis but gastroenteritis is also possible. reports she can not afford Januvia and has not filled or started yet. to discuss with pcp. Medical Records Medical records reviewed: Yes I reviewed the patient's medical records. Imaging Data Radiologic Study: Imaging: X-Ray (chest xray) Radiologist's impression: Exam(s) XR CHEST 2V PA LATERAL EXAM: XR CHEST 2V PA LATERAL CLINICAL HISTORY: DKA, TECHNIQUE: 2D digital imaging was performed. COMPARISON: CR CHEST 2 VIEWS PA,LAT from 03/10/2015 FINDINGS: HEART: Normal size. Aorta: Not dilated. PULMONARY VASCULATURE: Normal. LUNGS: Clear. PLEURAL SPACE: No pleural effusion or pneumothorax. BONE:Unremarkable for age. Soft tissues: Unremarkable. IMPRESSION: No acute abnormality. Lab Data Lab results reviewed: Yes I reviewed the patient's lab results. Labs: Laboratory Results - last 24 hr 11/19/23 11/19/23 09:50 09:56 WBC 12.97 H RBC 5.55 H Hgb 15.7 Hct 45.8 MCV 83 MCH 28.3 MCHC 34.3 RDW 13.1 Plt Count 308 MPV 8.9 Immature Gran % 0.4 Neutrophils % 80.9 Lymphocytes % 12.8 Monocytes % 4.5 Eosinophils % 1.1 Basophils % 0.3 Nucleated RBC % 0.0 Absolute Neutrophils 10.49 H Absolute Lymphocytes 1.66 Absolute Monocytes 0.58 Absolute Eosinophils 0.14 Absolute Basophils 0.04 VBG pH 7.38 VBG pCO2 42 VBG pO2 29 VBG HCO3 25 VBG Total CO2 22 L VBG O2 Saturation 59 VBG Base Excess 0 Sodium 135 L Potassium 4.3 Chloride 98 Carbon Dioxide 24.8 Anion Gap 12.2 H BUN 13 Creatinine 0.7 Est GFR (CKD-EPI 2020) 108.62 Glucose 371 H Calcium 9.5 Total Bilirubin 0.7 AST 10 L ALT 29 Alkaline Phosphatase 113 Total Protein 7.9 Albumin 4.2 Urine Color Yellow Urine Clarity Clear Urine pH 7.0 Ur Specific [place] 1.025 Urine Protein Trace Urine Ketones Negative Urine Blood Negative Urine Nitrite Negative Urine Bilirubin Negative Urine Urobilinogen 0.2 Ur Leukocyte Esterase Negative Urine RBC 0-2 Urine WBC 3-5 Ur Epithelial Cells Rare Urine Crystals Negative Urine Bacteria Few Urine Casts Comment Urine Mucus Trace Ur Culture Indicated? No Urine Glucose >=1000 H Quality:SDOH Health Related Social Needs: No Data to Display PFSH All Active Problems (Updated 11/19/23 @ 11:48 by Zabrina Ochoa NP) Poorly controlled type 2 diabetes mellitus (Acute) HTN (hypertension) (Chronic) E. coli UTI (Acute 06/13/14) Received 4 days of IV Deftriaxone. Not discharged on the with any antibiotics. FU urine nonspecific mixed gram positive growth. Type 2 diabetes mellitus (Chronic) Initially on insulin therapy and then oral Metformin, now back on insulin thereapy. Hyperlipidemia (Chronic) Started on Pravastatin this admission (06-13-2014) Morbid obesity with body mass index of 40.0-49.9 (Chronic) Family History Mother Diabetes Uterine cancer Father Diabetes Heart disease Sister Thyroid disorder Grandmother Colon cancer maternal Social History Smoking/Tobacco Use Status: Never Smoking risk assessment performed?: Yes Alcohol Intake: never Drug use: Never Housing: house Do you feel safe at home: Yes Do you feel safe in your relationship?: Yes
[2023-11-19] MEDS: Normal Saline 1,000 ML 1000 ML IV ×2 (09:55→11:02)
[2023-11-19 09:56] LABS: BE (Venous) 0 mmol/L (-2-3); HCO3 (Venous) 25 mmol/L (23-28); O2 Sat (Venous) 59 %; TCO2 (Venous) 22 mmol/L (24-29); pCO2 (Venous) 42 mmHg (41-51); pH (Venous) 7.38 (7.31-7.41); pO2 (Venous) 29 mmHg
[2023-11-19 09:57] LABS: Abs Immature Grans 0.05 10^3/uL (0.0-0.06); Absolute Basophil Count 0.04 10^3/uL (0.0-0.2); Absolute Eosinophil Count 0.14 10^3/uL (0.0-0.7); Absolute Lymphocyte Count 1.66 10^3/uL (1.2-3.4); Absolute Monocyte Count 0.58 10^3/uL (0.1-0.8); Absolute Neutrophil Count 10.49 10^3/uL (1.2-6.7); Basophils % 0.3; Eosinophils % 1.1; HCT 45.8 % (36.0-46.0); HGB 15.7 g/dL (11.2-15.7); Immature Grans % 0.4; Lymphocytes % 12.8; MCH 28.3 pg (27.0-33.0); MCHC 34.3 % (32.0-36.0); MCV 83 fL (80-95); MPV 8.9 fL (8.0-11.0); Monocytes % 4.5; Neutrophils % 80.9; Platelet Count 308 10^3/uL (130-400); RBC 5.55 10^6/uL (3.93-5.22); RDW 13.1 % (11.7-14.6); RDW-SD 38.9 fL; WBC 12.97 10^3/uL (4.4-10.8)
[2023-11-19 10:02] LABS: Bilirubin Negative (Negative); Blood Negative (Negative); Clarity Clear (Clear); Glucose >=1000 mg/dL (Negative); Ketones Negative (Negative); Leukocyte Esterase Negative (Negative); Nitrite Negative (Negative); Specific Gravity 1.025 (1.005-1.025); Urobilinogen 0.2 mg/dL (Up to 0.2)
[2023-11-19 10:15] LABS: ALT 29 U/L (14-59); AST 10 U/L (15-37); Albumin 4.2 g/dL (3.4-5.0); Alkaline Phosphatase 113 U/L (46-116); Anion Gap 12.2 mmol/L (3-11); BUN 13 mg/dL (7-18); Bilirubin, Total 0.7 mg/dL (0.2-1.0); CO2 24.8 mmol/L (21.0-32.0); CREATININE 0.7 mg/dL (0.55-1.02); Calcium 9.5 mg/dL (8.5-10.1); Chloride 98 mmol/L (98-107); Estimated GFR 108.62 (mL/min/1.73m2); Glucose 371 mg/dL (74-106); Potassium 4.3 mmol/L (3.5-5.1); Sodium 135 mmol/L (136-145); Total Protein 7.9 g/dL (6.4-8.2)
--- NOTE | 2023-11-19 10:22 | DI.RAD_ITS ---
Exam(s) XR CHEST 2V PA LATERAL EXAM: XR CHEST 2V PA LATERAL CLINICAL HISTORY: DKA, TECHNIQUE: 2D digital imaging was performed. COMPARISON: CR CHEST 2 VIEWS PA,LAT from 03/10/2015 FINDINGS: HEART: Normal size. Aorta: Not dilated. PULMONARY VASCULATURE: Normal. LUNGS: Clear. PLEURAL SPACE: No pleural effusion or pneumothorax. BONE:Unremarkable for age. Soft tissues: Unremarkable. IMPRESSION: No acute abnormality. DATA REPOSITORY: RADIATION DOSE DELIVERED:
[2023-11-19 11:26] LABS: Bacteria Few HPF (Negative); C & S Indicated? No; Crystals Negative HPF (Negative); Epithelial Cells Rare HPF (Negative); Mucus Trace (Negative); RBC 0-2 HPF (0-2)
[2023-11-19 11:34] VITALS: BP 169/95; PULSE 94; RESP 18; O2SAT 100
[2023-11-19] MEDS: Insulin REGULAR-Human 100 UNITS/ML UNIT 6 UNITS SC (11:39)
[2023-11-19] MEDS: Prochlorperazine 10 MG/2 ML VIAL IVP (11:39)
== END 2023-11-19 12:12 | disposition home or self-care (01) ==
PROVIDERS: Emergency Provider Nurse Practitioner Acute Care; PCP Family Medicine
DX: R11.10 Vomiting, unspecified (principal); R10.9 Unspecified abdominal pain; E11.65 Type 2 diabetes mellitus with hyperglycemia
CPT/HCPCS: 36416; 80053; 82805; 82962; 96361; 96374; 99284; 71046; 81003; 81015; 85025; 99283; J0780; J1815

== ENCOUNTER 2024-12-08 16:22 | Outpatient (REF) | payer BC, SELFPAY ==
[2024-12-08 21:53] LABS: COMMENT (LAB VIEW ONLY) 106.64 mg/dL; Microalb ug/mg Crea 54.6 ug/mg Cr
== END 2024-12-08 16:23 | disposition home or self-care (01) ==
LOC: NCHCN 16:22
PROVIDERS: PCP Family Medicine; Visit Provider Family Medicine
DX: E11.9 Type 2 diabetes mellitus without complications (principal)
CPT/HCPCS: 82043; 82570

== ENCOUNTER 2025-04-07 10:45 | Outpatient (REF) | payer BC, SELFPAY ==
[2025-04-07 17:01] LABS: Abs Immature Grans 0.02 10^3/uL (0.0-0.06); HCT 42.6 % (36.0-46.0); HGB 14.0 g/dL (11.2-15.7); Immature Grans % 0.3 %; MCH 28.4 pg (27.0-33.0); MCHC 32.9 % (32.0-36.0); MCV 86 fL (80-95); MPV 9.6 fL (8.0-11.0); Platelet Count 240 10^3/uL (130-400); RBC 4.93 10^6/uL (3.93-5.22); RDW 12.9 % (11.7-14.6); RDW-SD 40.4 fL; WBC 6.69 10^3/uL (4.4-10.8)
[2025-04-07 17:28] LABS: ALT 46 U/L (14-59); AST 15 U/L (15-37); Albumin 3.8 g/dL (3.4-5.0); Alkaline Phosphatase 95 U/L (46-116); Anion Gap 10.0 mmol/L (3-11); BUN 21 mg/dL (7-18); Bilirubin, Total 0.3 mg/dL (0.2-1.0); CO2 26.0 mmol/L (21.0-32.0); Calcium 9.1 mg/dL (8.5-10.1); Calculated LDL 106 mg/dL (<100); Chloride 104 mmol/L (98-107); Cholesterol 165 mg/dL (<200); Estimated GFR 132.41 (mL/min/1.73m2); Glucose 164 mg/dL (74-106); HDL Cholesterol 48 mg/dL (>or=50); Potassium 4.3 mmol/L (3.5-5.1); Sodium 140 mmol/L (136-145); Total Protein 6.8 g/dL (6.4-8.2); Triglyceride 58 mg/dL (<150)
== END 2025-04-07 10:46 | disposition home or self-care (01) ==
LOC: NCHCN 10:45
PROVIDERS: PCP Family Medicine; Visit Provider Family Medicine
DX: E78.5 Hyperlipidemia, unspecified (principal); I10 Essential (primary) hypertension
CPT/HCPCS: 80053; 80061; 85025